=== PATIENT | female | born 1940 ===

== ENCOUNTER 2016-08-17 14:52 | Emergency (ER) | payer MEDICARE ==
[2016-08-17 15:08] VITALS: TEMP 98.4
--- NOTE | 2016-08-17 16:34 | ED PDOC ---
HPI: General Adult Time Seen by Provider: 08/17/16 15:10 Chief Complaint (Nursing): Cough, Cold, Congestion Chief Complaint (Provider): shortness of breath History Per: Patient History/Exam Limitations: no limitations Additional Complaint(s): 75yo female was diagnosed with bronchitis at [facility] [place] 4 days ago and sent home with PO levaquin. Since then, fever, shortness of breath, dizziness, has been getting worse. Family reports poor appetite. Patient states that she ran out of albuterol months ago. Per Dr. Bucio note Rx: cough, congestion, worsening fatigue for 3 days with SaO2 92%. PMD: Fortunato Past Medical History Reviewed: Historical Data, Nursing Documentation, Vital Signs Vital Signs: Last Vital Signs Temp 98.4 F 08/17/16 15:05 Pulse 91 H 08/17/16 18:19 Resp 18 08/17/16 18:19 BP 95/57 L 08/17/16 18:19 Pulse Ox 94 L 08/18/16 22:43 - Medical History PMH: Asthma, Hypothyroidism, Rheumatoid Arthritis Other PMH: seasonal allergies, "sinus problems" - Surgical History Surgical History: No Surg Hx - Family History Family History: States: Unknown Family Hx - Social History Current smoker - smoking cessation education provided: No Alcohol: None Drugs: Denies - Home Medications Home Medications: Ambulatory Orders Medication Instructions Recorded Albuterol 0.042% [Albuterol 0.042% 3 ml IH Q4H PRN #30 nelsy 08/17/16 Inhal Nelsy (1.25mg/3ml) UD] Albuterol 0.083% [Albuterol 0.083% 2.5 mg IH Q4H PRN #30 ml 08/17/16 Inhal Nelsy (2.5 mg/3 ml) UD] Benzonatate [Tessalon Perle] 100 mg PO TID PRN #10 capsule 08/17/16 - Allergies Allergies/Adverse Reactions: Allergies Allergy/AdvReac Type Severity Reaction Status Date / Time No Known Allergies Allergy Verified 08/17/16 15:04 Review of Systems ROS Statement: Except As Marked, All Systems Reviewed And Found Negative Constitutional: Positive for: Fever, Other (fatigue) ENT: Positive for: Nose Congestion Respiratory: Positive for: Cough, Shortness of Breath Physical Exam - Reviewed Nursing Documentation Reviewed: Yes Vital Signs Reviewed: Yes - Physical Exam Appears: Positive for: Well, Non-toxic, No Acute Distress Head Exam: Positive for: ATRAUMATIC, NORMAL INSPECTION, NORMOCEPHALIC Skin: Positive for: Warm, Dry Eye Exam: Positive for: EOMI, PERRL Cardiovascular/Chest: Positive for: Regular Rate, Rhythm Respiratory: Positive for: Rhonchi (diffuse). Negative for: Accessory Muscle Use, Crackles, Rales, Stridor, Wheezing, Respiratory Distress Gastrointestinal/Abdominal: Positive for: Soft. Negative for: Tenderness Extremity: Positive for: Normal ROM Neurologic/Psych: Positive for: Alert, Oriented - Laboratory Results Result Diagrams: 08/17/16 16:00 08/17/16 16:00 - ECG O2 Sat by Pulse Oximetry: 94 Medical Decision Making Medical Decision Makin Impression: bronchitis possible asthma exacerbation plan: -CXR -labs -albuterol -reassess 1810 XRay does not show large pnuemonia. (pt already on levaquin), O2 saturation has improved. Patient reports that she ran out of albuterol moths ago. Upon reevaluation, patient feels better with albuterol. Discussed diagnosis of asthma with patient. pt insturcted to continue leavquin at home as prescrivbed by other doctor. Patient will be given Rx for albuterol and tessalon perle. Patient will follow up with her PMD and is advised to return to the ED with symptoms worsen. Scribe Attestation: Documented by Sherlyn Perez, acting as a scribe for Mahamed Martines MD. Provider Scribe Attestation: All medical record entries made by the Scribe were at my direction and personally dictated by me. I have reviewed the chart and agree that the record accurately reflects my personal performance of the history, physical exam, medical decision making, and the department course for this patient. I have also personally directed, reviewed, and agree with the discharge instructions and disposition. Disposition - Clinical Impression Clinical Impression: Asthma - Patient ED Disposition Is Patient to be Admitted: No Counseled Patient/Family Regarding: Studies Performed, Diagnosis, Need For Followup - Disposition Disposition: Routine/Home Disposition Time: 18:00 Condition: GOOD Additional Instructions: follow up with your primary doctor in 1-2 days. return to the ED with any worsening or concerning symptoms. Prescriptions: Albuterol 0.042% [Albuterol 0.042% Inhal Nelsy (1.25mg/3ml) UD] 3 ml IH Q4H PRN # 30 nelsy PRN Reason: Cough Albuterol 0.083% [Albuterol 0.083% Inhal Nelsy (2.5 mg/3 ml) UD] 2.5 mg IH Q4H PRN #30 ml PRN Reason: Cough Benzonatate [Tessalon Perle] 100 mg PO TID PRN #10 capsule PRN Reason: Cough Instructions: Asthma (ED) Print Language: SAMOAN Additional Comments - Additional Comments Additional Comments: Scribe Attestation: Documented by Tashi Beasley acting as a scribe for Mahamed Martines MD. Provider Scribe Attestation: All medical record entries made by the Scribe were at my direction and personally dictated by me. I have reviewed the chart and agree that the record accurately reflects my personal performance of the history, physical exam, medical decision making, and the department course for this patient. I have also personally directed, reviewed, and agree with the discharge instructions and disposition.
[2016-08-17] MEDS ORDERED: Albuterol 0.083% Inhal Sol (2.5 mg/3 mL) UD INH ONE ×2 (16:37→18:32)
[2016-08-17] MEDS ORDERED: Albuterol 0.083% Inhal Sol (2.5 mg/3 mL) UD ONE (16:44)
[2016-08-17 17:17] LABS: BASO # 0.1 K/uL (0.0-0.2); BASO % 0.8 % (0.0-2.0); EOS % 0.7 % (0.0-4.0); HEMATOCRIT 43.9 % (34.0-47.0); LYMPH # 2.9 K/uL (1.0-4.3); LYMPH % 44.6 % (20.0-40.0); MEAN CELL VOLUME 86.1 fl (81.0-99.0); MEAN CORPUSCULAR HEMOGLOBIN 27.7 pg (27.0-31.0); MEAN CORPUSCULAR HGB CONC 32.1 g/dL (33.0-37.0); MEAN PLATELET VOLUME 8.3 fl (7.2-11.7); MONO # 0.8 K/uL (0.0-0.8); MONO % 12.8 % (0.0-10.0); NEUT # 2.7 K/uL (1.8-7.0); NEUT % 41.1 % (50.0-75.0); NRBC % 0.1 % (0.0-0.0); RED CELL DISTRIBUTION WIDTH 14.2 % (11.5-14.5); WHITE BLOOD COUNT 6.6 K/uL (4.8-10.8)
[2016-08-17 17:31] LABS: ALB/GLOB RATIO 0.9 (1.0-2.1); ALKALINE PHOSPHATASE 85 U/L (38-126); ALT/SGPT 37 U/L (9-52); AST/SGOT 35 U/L (14-36); BILIRUBIN,TOTAL 0.7 mg/dl (0.2-1.3); BLOOD UREA NITROGEN 16 mg/dl (7-17); CALCIUM 9.2 mg/dL (8.4-10.2); CARBON DIOXIDE 28 mmol/L (22-30); CHLORIDE 101 mmol/L (98-107); GFR AFRICAN-AMERICAN > 60; GLUCOSE,RANDOM 126 mg/dL (65-105); POTASSIUM 3.5 MMOL/L (3.6-5.0); SODIUM 146 mmol/l (132-148); TOTAL PROTEIN 8.2 G/DL (6.3-8.2)
[2016-08-17] MEDS ORDERED: Potassium Chloride 20 mEq ER Tab PO ONE (18:10)
[2016-08-17 18:23] VITALS: BP 95/57; PULSE 91; RESP 18
[2016-08-17 18:37] VITALS: O2SAT 94
--- NOTE | 2016-08-18 08:25 | RAD ---
HISTORY: cough COMPARISON: No prior. TECHNIQUE: Chest PA and lateral FINDINGS: LUNGS: Hyperinflation of the lungs. Possible small linear opacity at the left lower lung. PLEURA: No significant pleural effusion identified. No pneumothorax apparent. CARDIOVASCULAR: Normal. OSSEOUS STRUCTURES: No significant abnormalities. VISUALIZED UPPER ABDOMEN: Normal. OTHER FINDINGS: None. IMPRESSION: Hyperinflation of the lungs suggestive of COPD. Questionable small linear opacity at the left lower lung.
== END 2016-08-17 18:50 | disposition home or self-care (01) ==
LOC: H.ER 14:52
DX: J45.909 Unspecified asthma, uncomplicated (principal); E03.9 Hypothyroidism, unspecified

== ENCOUNTER 2017-05-25 07:35 | Inpatient (IN) | payer MEDICARE ==
[2017-05-25] MEDS ORDERED: Sodium Chloride 0.9% 1,000 ML IV STA (07:48)
--- NOTE | 2017-05-25 07:58 | ED PDOC ---
HPI: Abdomen Time Seen by Provider: 05/25/17 07:48 Chief Complaint (Nursing): Abdominal Pain Chief Complaint (Provider): abdominal pain History Per: Patient, Family, [employer]house [employer] Super[employer] History/Exam Limitations: no limitations Onset/Duration Of Symptoms: Days (1) Current Symptoms Are (Timing): Still Present Location Of Pain/Discomfort: LLQ Quality Of Discomfort: Sharp Associated Symptoms: Loss Of Appetite, Back Pain. denies: Nausea, Vomiting, Diarrhea, Chest Pain, Constipation, Urinary Symptoms Exacerbating Factors: None Alleviating Factors: None Additional Complaint(s): 76yo female arrives via EMS c/o LLQ pain onset last night, similar to prior history of diverticulitis. Patient is a poor historian, unsure when last episode of diverticulitis took place. She also c/o generalized weakness. Daughter in law present, visiting from [place], unfamiliar with specifics of history or care, does know she had R knee surgery several weeks ago at [facility] [place]. Abnormal Vaginal Bleeding: No Past Medical History Reviewed: Historical Data, Nursing Documentation, Vital Signs Vital Signs: Last Vital Signs Temp 98.7 F 05/29/17 12:00 Pulse 117 H 05/29/17 12:00 Resp 18 05/29/17 12:00 BP 112/61 05/29/17 12:00 Pulse Ox 95 05/29/17 12:00 - Medical History PMH: Asthma, Hypothyroidism, Rheumatoid Arthritis - Surgical History Other surgeries: R knee - Family History Family History: States: Unknown Family Hx - Living Arrangements Living Arrangements: With Family - Social History Current smoker - smoking cessation education provided: No - Home Medications Home Medications: Ambulatory Orders Medication Instructions Recorded Albuterol HFA [Ventolin HFA 90 2 puff IH Q4H PRN 05/25/17 mcg/actuation (8 g)] Etanercept [Enbrel] 50 mg SC Q14D 05/25/17 Fluticasone/Salmeterol 100/50 1 puff IH Q12H 05/25/17 [Advair Diskus 100/50] Levocetirizine Dihydrochloride 5 mg PO DAILY 05/25/17 [Xyzal] Montelukast [Singulair] 10 mg PO DAILY 05/25/17 Aspirin 81 mg PO DAILY #30 tab.chew 05/26/17 Atorvastatin [Lipitor] 20 mg PO DAILY #30 tab 05/26/17 Levothyroxine [Synthroid] 100 mcg PO DAILY #30 tab 05/26/17 - Allergies Allergies/Adverse Reactions: Allergies Allergy/AdvReac Type Severity Reaction Status Date / Time No Known Allergies Allergy Verified 08/17/16 15:04 Review of Systems ROS Statement: Except As Marked, All Systems Reviewed And Found Negative Constitutional: Negative for: Fever, Chills Cardiovascular: Negative for: Chest Pain, Palpitations Respiratory: Negative for: Cough, Shortness of Breath Gastrointestinal: Positive for: Abdominal Pain. Negative for: Nausea, Vomiting , Diarrhea, Hematochezia, Hematemesis Genitourinary Female: Negative for: Dysuria, Frequency Musculoskeletal: Negative for: Neck Pain Skin: Negative for: Rash, Lesions, Jaundice Neurological: Negative for: Weakness, Numbness Physical Exam - Reviewed Nursing Documentation Reviewed: Yes Vital Signs Reviewed: Yes - Physical Exam Appears: Positive for: Well, Non-toxic, No Acute Distress Head Exam: Positive for: ATRAUMATIC, NORMAL INSPECTION, NORMOCEPHALIC Skin: Positive for: Warm, Pallor Eye Exam: Positive for: EOMI, Normal appearance, PERRL ENT: Positive for: Normal ENT Inspection Neck: Positive for: Normal, Painless ROM Cardiovascular/Chest: Positive for: Regular Rate, Rhythm Respiratory: Positive for: CNT, Normal Breath Sounds Gastrointestinal/Abdominal: Positive for: Bowel Sounds, Soft, Tenderness (LLQ). Negative for: Distended, Guarding, Rebound Back: Positive for: Normal Inspection Extremity: Positive for: Normal ROM, Pedal Edema (trace R>L, R knee surg scars healing) Neurologic/Psych: Positive for: Alert, Oriented (poor historian). Negative for : Motor/Sensory Deficits, Aphasia, Facial Droop - Laboratory Results Result Diagrams: 05/29/17 04:30 05/29/17 04:30 Medical Decision Making Medical Decision Making: workup for abd pain initiated labs, CT and/pelv, IVF and analgesics ordered CT report reviewed PMD covered by hospitalist, admit for GI consult possible intestinal angina Disposition - Clinical Impression Clinical Impression: Intestinal angina, Abdominal pain - Patient ED Disposition Is Patient to be Admitted: Yes Counseled Patient/Family Regarding: Studies Performed, Diagnosis - Disposition Disposition Time: 11:30 Condition: FAIR - Pt Status Changed To: Hospital Disposition Of: Inpatient - Admit Certification Admit to Inpatient:: After my assessment, the patient will require hospitalization for at least two midnights. This is because of the severity of symptoms shown, intensity of services needed, and/or the medical risk in this patient being treated as an outpatient. - POA Present On Arrival: None, Deep Vein Thrombosis / PE (Lower extremity swelling present on admission)
[2017-05-25 08:16] LABS: BASO # 0.1 K/uL (0.0-0.2); BASO % 0.5 % (0.0-2.0); EOS % 0.4 % (0.0-4.0); HEMOGLOBIN 13.4 g/dL (12.0-16.0); LYMPH % 15.1 % (20.0-40.0); MEAN CORPUSCULAR HEMOGLOBIN 27.9 pg (27.0-31.0); MEAN CORPUSCULAR HGB CONC 32.1 g/dL (33.0-37.0); MEAN PLATELET VOLUME 7.3 fl (7.2-11.7); MONO % 7.6 % (0.0-10.0); NEUT # 9.9 K/uL (1.8-7.0); NEUT % 76.4 % (50.0-75.0); NRBC % 0.1 % (0.0-0.0); RBC 4.79 Mil/uL (3.80-5.20); RED CELL DISTRIBUTION WIDTH 16.4 % (11.5-14.5); WHITE BLOOD COUNT 12.9 K/uL (4.8-10.8)
[2017-05-25 08:31] LABS: ALBUMIN 4.3 g/dL (3.5-5.0); CALCIUM 9.9 mg/dL (8.4-10.2); GFR AFRICAN-AMERICAN > 60; GFR NON-AFRICAN AMERICAN > 60; LIPASE 47 U/L (23-300)
[2017-05-25 08:46] LABS: PARTIAL THROMBOPLASTIN TIME 28.5 Seconds (25.6-37.1); PROTHROMBIN TIME 11.6 Seconds (9.8-13.1)
[2017-05-25 08:48] LABS: ALT/SGPT 34 U/L (9-52); AST/SGOT 37 U/L (14-36); BLOOD UREA NITROGEN 10 mg/dl (7-17)
[2017-05-25] MEDS ORDERED: Sodium Chloride 0.9% 50 ML IV ONE (10:19)
[2017-05-25] MEDS ORDERED: Iohexol 300 100 ML IJ ONE (10:19)
--- NOTE | 2017-05-25 12:20 | CT ---
PROCEDURE: CT Abdomen and Pelvis with contrast HISTORY: LLQ pain, hx diverticulitis COMPARISON: None. TECHNIQUE: Contrast dose: 95 mL Omnipaque 300 Radiation dose: Total exam DLP = 807.49 mGy-cm. This CT exam was performed using one or more of the following dose reduction techniques: Automated exposure control, adjustment of the mA and/or kV according to patient size, and/or use of iterative reconstruction technique. FINDINGS: LOWER THORAX: Unremarkable. LIVER: Normal size, contour and attenuation. Mild central intrahepatic biliary dilatation consistent with prior cholecystectomy. GALLBLADDER AND BILE DUCTS: Status post cholecystectomy. Mild dilatation of common bile duct to 9 mm diameter, consistent with age related ectasia and prior cholecystectomy. PANCREAS: Unremarkable. No gross lesion or ductal dilatation. SPLEEN: Unremarkable. ADRENALS: Unremarkable. No mass. KIDNEYS AND URETERS: 10 mm nonspecific rounded low-attenuation lesion upper pole left kidney. No other mass. No calculus or hydronephrosis. VASCULATURE: No evidence of abdominal aortic aneurysm. 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 There is bilobed occlusion of the proximal S and head at its origin with reconstitution distally supplied primarily by the pancreaticoduodenal arcade arising from the gastroduodenal artery. The SMA is reconstituted and there is flow demonstrated to the branches supplying the small intestine. BOWEL: Extensive diverticulosis of the sigmoid colon. Scattered diverticula seen throughout the remainder of the colon. No evidence of diverticulitis. No bowel obstruction. No abnormal bowel loops. APPENDIX: Normal appendix. PERITONEUM: Unremarkable. No free fluid. No free air. LYMPH NODES: Unremarkable. No enlarged lymph nodes. BLADDER: Unremarkable. REPRODUCTIVE: Status post hysterectomy. BONES: No acute fracture. OTHER FINDINGS: None. 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 Status post cholecystectomy. Sigmoid diverticulosis without evidence of diverticulitis. No abnormal small bowel loops identified.
[2017-05-25] MEDS ORDERED: Pneumococcal 23-Valent Vaccine IM ONE (13:30)
--- NOTE | 2017-05-25 13:37 | CP.PCM.HP ---
History of Present Illness - History of Present Illness History of Present Illness: 76 y/o female with PMH Hypothyroidism, Asthma, second hand smoker brought to ER by family for evaluation for severe abdominal pain . History obtained from patient and family. As per patient, she developed severe sharp 10/10 mid abdominal pain radiating to left flank this AM. She denies any constipation or diarrhea but gives history of poor PO intake with no appetite for some time , history that is corroborated by family members .As per family patient has been feeling weak and tired. 1 month ago she had left knee arthroscopy and repair. 2 weeks ago her son found her on the bathroom floor , after a fall due to weakness ,with a trail of diarrhea from her room to the bathroom . Patient was admitted at [facility] and was diagnosed with dehydration and after was discharged home. Family states that patient has very poor PO intake, no appetite , has no bowel or urinary control and wears diapers all the time, has bilateral knee arthritis and difficulty with walking due to weakness. 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 Status post cholecystectomy. Sigmoid diverticulosis without evidence of diverticulitis. No abnormal small bowel loops identified. Patient to be placed under observation for abdominal angina and GI to be consulted. 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 Fortunato HAY ; complains of poor appetite , abdominal pain and generalized weakness Present on Admission - Present on Admission Any Indicators Present on Admission: No Review of Systems - Review of Systems All systems: reviewed and no additional remarkable complaints except Past Patient History - Infectious Disease Hx of Infectious Diseases: None - Tetanus Immunizations Tetanus Immunization: Unknown - Past Medical History & Family History Past Medical History?: Yes Past Family History: Reviewed and not pertinent - Past Social History Smoking Status: Never Smoked Chewing Tobacco Use: No Cigar Use: No Alcohol: None Drugs: Denies Home Situation {Lives}: Alone Domestic Violence: Negative - PULMONARY Hx Asthma: Yes - ENDOCRINE/METABOLIC Hx Hypothyroidism: Yes - MUSCULOSKELETAL/RHEUMATOLOGICAL Hx Rheumatoid Arthritis: Yes - GASTROINTESTINAL Hx Diverticulitis: Yes - PSYCHIATRIC Hx Substance Use: No - SURGICAL HISTORY Hx Hysterectomy: Yes Hx Orthopedic Surgery: Yes (Right knee) Other/Comment: Fractured right ankle. Sinus - ANESTHESIA Hx Anesthesia: Yes Hx Anesthesia Reactions: No Hx Malignant Hyperthermia: No Meds Allergies/Adverse Reactions: Allergies Allergy/AdvReac Type Severity Reaction Status Date / Time No Known Allergies Allergy Verified 08/17/16 15:04 Physical Exam - Constitutional Appears: Non-toxic, No Acute Distress - Head Exam Head Exam: ATRAUMATIC, NORMAL INSPECTION, NORMOCEPHALIC - Eye Exam Eye Exam: EOMI, Normal appearance, PERRL Pupil Exam: NORMAL ACCOMODATION - ENT Exam ENT Exam: Mucous Membranes Moist, Normal Exam - Neck Exam Neck exam: Positive for: Full Rom, Normal Inspection - Respiratory Exam Respiratory Exam: Clear to Auscultation Bilateral, NORMAL BREATHING PATTERN. absent: Rhonchi, Wheezes, Respiratory Distress - Cardiovascular Exam Cardiovascular Exam: REGULAR RHYTHM, RRR, +S1, +S2. absent: JVD - GI/Abdominal Exam GI & Abdominal Exam: Normal Bowel Sounds, Tenderness (with palpation ). absent : Distended, Guarding, Rebound - Rectal Exam Rectal Exam: Deferred - Extremities Exam Extremities exam: Positive for: normal capillary refill, normal inspection, pedal pulses present. Negative for: calf tenderness, pedal edema Additional comments: right knee arthritic changes - Back Exam Back exam: NORMAL INSPECTION - Neurological Exam Neurological exam: Alert, CN II-XII Intact, Oriented x3 - Psychiatric Exam Psychiatric exam: Normal Affect - Skin Skin Exam: Dry, Warm Results - Vital Signs Recent Vital Signs: Last Vital Signs Temp 98.9 F 05/25/17 12:44 Pulse 76 05/25/17 12:44 Resp 20 05/25/17 12:44 BP 123/74 05/25/17 12:44 Pulse Ox 98 05/25/17 12:44 - Labs Result Diagrams: 05/25/17 08:07 05/25/17 08:07 Labs: Laboratory Results - last 24 hr 05/25/17 05/25/17 05/25/17 08:07 08:07 08:07 WBC 12.9 H D RBC 4.79 Hgb 13.4 Hct 41.7 MCV 87.0 MCH 27.9 MCHC 32.1 L RDW 16.4 H Plt Count 356 MPV 7.3 Neut % (Auto) 76.4 H Lymph % (Auto) 15.1 L Bucks % (Auto) 7.6 Eos % (Auto) 0.4 Baso % (Auto) 0.5 Neut # 9.9 H Lymph # 2.0 Bucks # 1.0 H Eos # 0.0 Baso # 0.1 PT 11.6 INR 1.0 APTT 28.5 Sodium 139 Potassium 4.3 Chloride 104 Carbon Dioxide 20 L Anion Gap 19 BUN 10 Creatinine 0.7 Est GFR ( Amer) > 60 Est GFR (Non-Af Amer) > 60 Random Glucose 177 H Calcium 9.9 Total Bilirubin 1.5 H AST 37 H D ALT 34 Alkaline Phosphatase 80 Total Protein 8.7 H Albumin 4.3 Globulin 4.3 H Albumin/Globulin Ratio 1.0 Lipase 47 - Imaging and Cardiology CT scan - abdomen Additional comment: 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 Status post cholecystectomy. Sigmoid diverticulosis without evidence of diverticulitis. No abnormal small bowel loops identified. Assessment & Plan - Assessment and Plan (Free Text) Assessment: 76 y/o female with PMH Hypothyroidism, Asthma, second hand smoker brought to ER by family for evaluation for severe abdominal pain . History obtained from patient and family. As per patient, she developed severe sharp 10/10 mid abdominal pain radiating to left flank this AM. She denies any constipation or diarrhea but gives history of poor PO intake with no appetite for some time , history that is corroborated by family members .As per family patient has been feeling weak and tired. 1 month ago she had left knee arthroscopy and repair. 2 weeks ago her son found her on the bathroom floor , after a fall due to weakness ,with a trail of diarrhea from her room to the bathroom . Patient was admitted at [facility] and was diagnosed with dehydration and after was discharged home. Family states that patient has very poor PO intake, no appetite , has no bowel or urinary control and wears diapers all the time, has bilateral knee arthritis and difficulty with walking due to weakness. 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 Status post cholecystectomy. Sigmoid diverticulosis without evidence of diverticulitis. No abnormal small bowel loops identified. Patient to be placed under observation for abdominal angina and GI to be consulted. 1. Abdominal pain most likely secondary to abdominal angina CT abdomen showed no diverticulitis, but extensive artherosclerotic disease will place patient under observation Start IVF GI consult with Dr. Chamberlain pain management Dylan 1.5 . patient has history of cholecystectomy and CT shows no stones lipase - normal Check UA, lipid profile 2. Hypothyroidism Check TSH resume synthroid . will increase dose to 100 mcg 3.Asthma Controlled resume Duonebs , O2 vi anC 4. Leukocytosis Most likely reactive and hemo concentration 5. Poor appetite denies depression nutrition eval 6. Arthritis On enbrel ? PT eval 7. DVT prophylaxis SCD Lovenox
[2017-05-25] MEDS: Sodium Chloride 0.9% 1,000 ML IV SCH ×2 (14:03→23:50)
[2017-05-25] MEDS ORDERED: Albuterol HFA 90 mcg/actuation (8 g) IH PRN (19:23)
[2017-05-25] MEDS: Fluticasone-Salmeterol 100-50mcg Diskus IH SCH ×2 (22:17→22:19)
[2017-05-26] MEDS: Levothyroxine 100 MCG TAB PO SCH ×3 (06:09→08:51)
[2017-05-26 06:25] LABS: BASO % 0.4 % (0.0-2.0); EOS # 0.1 K/uL (0.0-0.7); EOS % 0.5 % (0.0-4.0); HEMOGLOBIN 12.4 g/dL (12.0-16.0); LYMPH % 18.8 % (20.0-40.0); MEAN CELL VOLUME 87.6 fl (81.0-99.0); MEAN PLATELET VOLUME 7.4 fl (7.2-11.7); MONO # 1.1 K/uL (0.0-0.8); MONO % 10.3 % (0.0-10.0); NEUT # 7.4 K/uL (1.8-7.0); RBC 4.43 Mil/uL (3.80-5.20); RED CELL DISTRIBUTION WIDTH 16.3 % (11.5-14.5); WHITE BLOOD COUNT 10.6 K/uL (4.8-10.8)
[2017-05-26 06:40] LABS: ALB/GLOB RATIO 0.9 (1.0-2.1); ALBUMIN 3.8 g/dL (3.5-5.0); ALT/SGPT 41 U/L (9-52); AST/SGOT 25 U/L (14-36); BLOOD UREA NITROGEN 15 mg/dl (7-17); CALCIUM 9.7 mg/dL (8.4-10.2); GFR AFRICAN-AMERICAN > 60; GFR NON-AFRICAN AMERICAN > 60; HDL CHOLESTEROL 47 MG/DL (30-70); LDL CHOLESTEROL 109 mg/dL (0-129)
[2017-05-26 07:16] LABS: INR 1.1 (0.9-1.2); PROTHROMBIN TIME 12.5 Seconds (9.8-13.1)
[2017-05-26] MEDS: Fluticasone-Salmeterol 100-50mcg Diskus IH SCH ×2 (08:40→21:36)
[2017-05-26] MEDS: Pantoprazole 40 mg EC Tab PO SCH (08:41)
[2017-05-26] MEDS ORDERED: Levothyroxine 75 MCG TAB PO SCH (09:00)
--- NOTE | 2017-05-26 17:04 | CP.PCM.PN ---
Subjective - Date & Time of Evaluation Date of Evaluation: 05/26/17 Time of Evaluation: 14:00 - Subjective Subjective: Patient was seen and examined bedside. Complains of swollen left thigh more than right that she noticed this AM. Denies any pain or discomfort to LLE but states that her LLe feels heavy.As per family they noticed her feet turn to purple color when they assisted her to the bathroom. Denies any abdominal pain today, nausea, vomiting , diarrhea Hemodynamically stable, afebrile Objective - Vital Signs/Intake and Output Vital Signs (last 24 hours): Temp Pulse Resp BP Pulse Ox 98.9 F 100 H 20 108/71 97 05/26/17 15:49 05/26/17 15:49 05/26/17 15:49 05/26/17 15:49 05/26/17 15:49 - Medications Medications: Current Medications Acetaminophen (Tylenol 325mg Tab) 650 mg PO Q6 PRN PRN Reason: Pain, Mild (1-3) Acetaminophen (Tylenol 325mg Tab) 650 mg PO Q6 PRN PRN Reason: Fever >100.4 F Albuterol (Ventolin Hfa 90 Mcg/Actuation (8 G)) 2 puff IH Q4H PRN PRN Reason: Shortness of Breath Aspirin (Aspirin Chewable) [address] [facility] Last Admin: 05/26/17 10:57 Dose: 81 mg Atorvastatin Calcium (Lipitor) [address] [facility] Last Admin: 05/26/17 08:41 Dose: 20 mg Cilostazol (Pletal) [address] [facility] Sodium Chloride (Sodium Chloride 0.9%) 1,000 mls @ 100 mls/hr IV .Q10H [facility] Last Admin: 05/25/17 23:50 Dose: Not Given Ketorolac Tromethamine (Toradol) 30 mg IVP Q6 PRN PRN Reason: Pain, severe (8-10) Last Admin: 05/25/17 22:17 Dose: 30 mg Levothyroxine Sodium (Synthroid) 100 mcg PO DAILY@0630 [facility] Last Admin: 05/26/17 08:51 Dose: 100 mcg Montelukast Sodium (Singulair) [address] [facility] Last Admin: 05/26/17 08:42 Dose: 10 mg Ondansetron HCl (Zofran Inj) 4 mg IVP Q6 PRN PRN Reason: Nausea/Vomiting Pantoprazole Sodium (Protonix Ec Tab) [address] [facility] Last Admin: 05/26/17 08:41 Dose: 40 mg Fluticasone/Salmeterol (Advair Diskus 100/50) [address] [facility] Last Admin: 05/26/17 08:40 Dose: 1 puff - Labs Labs: 05/26/17 05:45 05/26/17 05:45 PT 12.5 Seconds (9.8-13.1) 05/26/17 05:45 INR 1.1 (0.9-1.2) 05/26/17 05:45 APTT 28.5 Seconds (25.6-37.1) 05/25/17 08:07 - Constitutional Appears: Non-toxic, No Acute Distress - Head Exam Head Exam: ATRAUMATIC, NORMAL INSPECTION, NORMOCEPHALIC - Eye Exam Eye Exam: EOMI, Normal appearance, PERRL Pupil Exam: NORMAL ACCOMODATION - ENT Exam ENT Exam: Mucous Membranes Moist, Normal Exam - Neck Exam Neck Exam: Full ROM, Normal Inspection - Respiratory Exam Respiratory Exam: Clear to Ausculation Bilateral, NORMAL BREATHING PATTERN. absent: Wheezes, Respiratory Distress Additional comments: coughing spells - Cardiovascular Exam Cardiovascular Exam: REGULAR RHYTHM, RRR, +S1, +S2. absent: JVD - GI/Abdominal Exam GI & Abdominal Exam: Soft, Normal Bowel Sounds. absent: Distended, Guarding, Tenderness, Rebound - Rectal Exam Rectal Exam: Deferred - Extremities Exam Extremities Exam: absent: Pedal Edema Additional comments: pulses present LE warm to touch no calf tenderness - Neurological Exam Neurological Exam: Alert, Awake, CN II-XII Intact, Oriented x3 - Psychiatric Exam Psychiatric exam: Normal Affect - Skin Skin Exam: Dry, Warm Assessment and Plan - Assessment and Plan (Free Text) Assessment: 76 y/o female with PMH Hypothyroidism, Asthma, second hand smoker brought to ER by family for evaluation for severe abdominal pain . History obtained from patient and family. As per patient, she developed severe sharp 10/10 mid abdominal pain radiating to left flank this AM. She denies any constipation or diarrhea but gives history of poor PO intake with no appetite for some time , history that is corroborated by family members .As per family patient has been feeling weak and tired. 1 month ago she had left knee arthroscopy and repair. 2 weeks ago her son found her on the bathroom floor , after a fall due to weakness ,with a trail of diarrhea from her room to the bathroom . Patient was admitted at [facility] and was diagnosed with dehydration and after was discharged home. Family states that patient has very poor PO intake, no appetite , has no bowel or urinary control and wears diapers all the time, has bilateral knee arthritis and difficulty with walking due to weakness. 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 Status post cholecystectomy. Sigmoid diverticulosis without evidence of diverticulitis. No abnormal small bowel loops identified. Patient was placed under observation for abdominal pain and GI consulted. Today patient complaining of swollen Left thigh more than right , denies pain . LE skin color changes to purple with ambulation 1. Abdominal pain most likely secondary to abdominal angina CT abdomen showed no diverticulitis, but extensive artherosclerotic disease GI consult with Dr. Chamberlain called and case discussed Started ASA, Atorvastatin and Pletal continue pain management PRN Dylan 1.5 . patient has history of cholecystectomy and CT shows no stones lipase - normal UA still not sent 2. Swollen Left Thigh will order Doppler US to r/o DVT Arterial doppler to r/o PAD 3. Hypothyroidism uncontrolled TSH 4.9 increased dose to 100 mcg 4.Asthma Controlled resume Duonebs , O2 via [place] 5. Leukocytosis Most likely reactive and hemo concentration 6. Poor appetite denies depression nutrition eval 7. Arthritis On enbrel for many yeras PT eval 8. DVT prophylaxis SCD Lovenox
[2017-05-26] MEDS: Cilostazol 50 mg Tab UD PO SCH (17:25)
--- NOTE | 2017-05-26 18:29 | CARD ---
APPROVED REPORT EKG Measurement Heart [id number] <Conclusion> Sinus tachycardia Left anterior fascicular block Abnormal ECG
[2017-05-26] MEDS: Sodium Chloride 0.9% 1,000 ML IV SCH (19:30)
[2017-05-27] MEDS: Sodium Chloride 0.9% 1,000 ML IV SCH (05:30)
[2017-05-27] MEDS: Levothyroxine 100 MCG TAB PO SCH (06:15)
[2017-05-27] MEDS: Pantoprazole 40 mg EC Tab PO SCH (09:00)
[2017-05-27] MEDS: Cilostazol 50 mg Tab UD PO SCH (09:00)
[2017-05-27] MEDS: Fluticasone-Salmeterol 100-50mcg Diskus IH SCH ×2 (09:02→21:15)
[2017-05-27 11:23] LABS: SQUAMOUS EPITHIAL 1 /hpf (0-5); URINE AMORPHOUS SEDIMENT RARE /ul (<OCC); URINE BILIRUBIN NEGATIVE (NEGATIVE); URINE BLOOD NEGATIVE (NEGATIVE); URINE CLARITY TURBID (Clear); URINE COLOR AMBER (YELLOW); URINE GLUCOSE (UA) NEG (Normal); URINE LEUKOCYTE ESTERASE LARGE Leu/uL (Negative); URINE NITRATE NEGATIVE (NEGATIVE); URINE PROTEIN 30 mg/dL (NEGATIVE); URINE UROBILINOGEN 0.2-1.0 mg/dL (0.2-1.0)
[2017-05-27] MEDS ORDERED: Enoxaparin 80 mg Syringe SC STA (13:22)
--- NOTE | 2017-05-27 13:42 | US ---
PROCEDURE: Bilateral lower extremity venous duplex Doppler. HISTORY: swollen large LLE , r/o DVT COMPARISON: None available. TECHNIQUE: Bilateral common femoral, superficial femoral, popliteal and posterior tibial veins were evaluated. Flow was assessed with color Doppler, compressibility, assessment of phasic flow and augmentation response. FINDINGS: COMMON FEMORAL VEIN: Right CFV: Unremarkable. Left CFV: DVT present within the left common, superficial, popliteal and posterior tibial veins. SUPERFICIAL FEMORAL VEIN: Right SFV: Unremarkable. Left SFV: Unremarkable. POPLITEAL VEIN: Right Popliteal: Unremarkable. Left Popliteal: Unremarkable. POSTERIOR TIBIAL VEIN: Right PTV: Unremarkable. Left PTV: Unremarkable. OTHER FINDINGS: None. IMPRESSION: DVT left common femoral superficial femoral popliteal and posterior tibial veins. Findings discussed with 6 S Nurse Carasig at approximately 1:38 p.m. with written down and read back verification.
--- NOTE | 2017-05-27 13:59 | CP.PCM.PN ---
Subjective - Date & Time of Evaluation Date of Evaluation: 05/27/17 Time of Evaluation: 13:59 - Subjective Subjective: pt continues to complain of leg swelling and back pain DOPPLERS +DVT will start LOVENOX 1 mg / kg q12h HD stable NAD NO DYSPNEA, SATURATING OK Objective - Vital Signs/Intake and Output Vital Signs (last 24 hours): Temp Pulse Resp BP Pulse Ox 98.1 F 103 H 20 102/64 96 05/27/17 09:00 05/27/17 08:16 05/27/17 08:16 05/27/17 08:16 05/27/17 08:16 - Medications Medications: Current Medications Acetaminophen (Tylenol 325mg Tab) 650 mg PO Q6 PRN PRN Reason: Pain, Mild (1-3) Acetaminophen (Tylenol 325mg Tab) 650 mg PO Q6 PRN PRN Reason: Fever >100.4 F Albuterol (Ventolin Hfa 90 Mcg/Actuation (8 G)) 2 puff IH Q4H PRN PRN Reason: Shortness of Breath Aspirin (Aspirin Chewable) 81 mg PO DAILY [facility] Last Admin: 05/27/17 09:01 Dose: 81 mg Atorvastatin Calcium (Lipitor) 20 mg PO DAILY [facility] Last Admin: 05/27/17 09:00 Dose: 20 mg Cilostazol (Pletal) 50 mg PO DAILY [facility] Last Admin: 05/27/17 09:00 Dose: 50 mg Enoxaparin Sodium (Lovenox) 75 mg SC Q12 [facility] PRN Reason: Protocol Sodium Chloride (Sodium Chloride 0.9%) 1,000 mls @ 100 mls/hr IV .Q10H [facility] Last Admin: 05/27/17 05:30 Dose: Not Given Ketorolac Tromethamine (Toradol) 30 mg IVP Q6 PRN PRN Reason: Pain, severe (8-10) Last Admin: 05/27/17 09:10 Dose: 30 mg Levothyroxine Sodium (Synthroid) 100 mcg PO DAILY@0630 [facility] Last Admin: 05/27/17 06:15 Dose: 100 mcg Montelukast Sodium (Singulair) 10 mg PO DAILY [facility] Last Admin: 05/27/17 09:00 Dose: 10 mg Nitrofurantoin Macrocrystals (Macrobid) 100 mg PO Q12 [facility] Stop: 05/30/17 12:31 Ondansetron HCl (Zofran Inj) 4 mg IVP Q6 PRN PRN Reason: Nausea/Vomiting Pantoprazole Sodium (Protonix Ec Tab) 40 mg PO DAILY [facility] Last Admin: 05/27/17 09:00 Dose: 40 mg Fluticasone/Salmeterol (Advair Diskus 100/50) 1 puff IH Q12 [facility] Last Admin: 05/27/17 09:02 Dose: 1 puff - Labs Labs: 05/26/17 05:45 05/26/17 05:45 PT 12.5 Seconds (9.8-13.1) 05/26/17 05:45 INR 1.1 (0.9-1.2) 05/26/17 05:45 APTT 28.5 Seconds (25.6-37.1) 05/25/17 08:07 - Constitutional Appears: Non-toxic, No Acute Distress - Head Exam Head Exam: ATRAUMATIC, NORMOCEPHALIC - Eye Exam Eye Exam: EOMI, Normal appearance Pupil Exam: NORMAL ACCOMODATION - ENT Exam ENT Exam: Mucous Membranes Moist, Normal Exam - Respiratory Exam Respiratory Exam: Clear to Ausculation Bilateral, NORMAL BREATHING PATTERN - Cardiovascular Exam Cardiovascular Exam: RRR, +S1, +S2 - GI/Abdominal Exam GI & Abdominal Exam: Soft, Normal Bowel Sounds. absent: Tenderness, Mass, Organomegaly - Extremities Exam Extremities Exam: Full ROM, Normal Capillary Refill, Pedal Edema - Back Exam Back Exam: absent: CVA tenderness (L), CVA tenderness (R) - Neurological Exam Neurological Exam: Alert, Awake - Psychiatric Exam Psychiatric exam: Normal Affect, Normal Mood - Skin Skin Exam: Dry, Warm Assessment and Plan - Assessment and Plan (Free Text) Plan: 76 y/o female with PMH Hypothyroidism, Asthma, second hand smoker brought to ER by family for evaluation for severe abdominal pain . History obtained from patient and family. As per patient, she developed severe sharp 10/10 mid abdominal pain radiating to left flank this AM. She denies any constipation or diarrhea but gives history of poor PO intake with no appetite for some time , history that is corroborated by family members .As per family patient has been feeling weak and tired. 1 month ago she had left knee arthroscopy and repair. 2 weeks ago her son found her on the bathroom floor , after a fall due to weakness ,with a trail of diarrhea from her room to the bathroom . Patient was admitted at [facility] and was diagnosed with dehydration and after was discharged home. Family states that patient has very poor PO intake, no appetite , has no bowel or urinary control and wears diapers all the time, has bilateral knee arthritis and difficulty with walking due to weakness. 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 Status post cholecystectomy. Sigmoid diverticulosis without evidence of diverticulitis. No abnormal small bowel loops identified. Patient was placed under observation for abdominal pain and GI consulted. Today patient complaining of swollen Left thigh more than right , denies pain . LE skin color changes to purple with ambulation 1. Abdominal pain most likely secondary to abdominal angina CT abdomen showed no diverticulitis, but extensive artherosclerotic disease GI consult with Dr. Chamberlain called and case discussed Started ASA, Atorvastatin and Pletal continue pain management PRN Dylan 1.5 . patient has history of cholecystectomy and CT shows no stones lipase - normal UA still not sent 2. DVT Swollen Left Thigh STAT lovenox 1 mg/kg given will initiate Xarelto tonight 2100 - to be started when next dose of lovenox due. 3. Hypothyroidism uncontrolled TSH 4.9 increased dose to 100 mcg 4.Asthma Controlled resume Duonebs , O2 via [place] 5. Leukocytosis Most likely reactive and hemo concentration 6. Poor appetite denies depression nutrition eval 7. Arthritis On enbrel for many yeras PT eval 8. DVT prophylaxis SCD Lovenox
[2017-05-27] MEDS ORDERED: Enoxaparin 80 mg Syringe SC SCH (21:00)
--- NOTE | 2017-05-28 01:11 | CP.PCM.CON ---
History of Present Illness - History of Present Illness History of Present Illness: 76 yo female with h/o hypothyroidism and rheumatoid arthritis admitted for abdominal pain and weight loss. She has not been eating well, is incontinent of urine and stool and has difficulty walkingShe had been recently [place] sent home after diagnosed with dehydration. Review of Systems - Constitutional Constitutional: absent: Chills - EENT Eyes: absent: Blurred Vision Ears: absent: Decreased Hearing Nose/Mouth/Throat: absent: Epistaxis - Cardiovascular Cardiovascular: absent: Chest Pain - Respiratory Respiratory: absent: Dyspnea - Gastrointestinal Gastrointestinal: As Per HPI Past Patient History - Infectious Disease Hx of Infectious Diseases: None - Tetanus Immunizations Tetanus Immunization: Unknown - Past Medical History & Family History Past Medical History?: Yes Past Family History: Reviewed and not pertinent - Past Social History Smoking Status: Never Smoked Chewing Tobacco Use: No Cigar Use: No Alcohol: None Drugs: Denies Home Situation {Lives}: Alone Domestic Violence: Negative - PULMONARY Hx Asthma: Yes - ENDOCRINE/METABOLIC Hx Hypothyroidism: Yes - MUSCULOSKELETAL/RHEUMATOLOGICAL Hx Rheumatoid Arthritis: Yes - GASTROINTESTINAL Hx Diverticulitis: Yes - PSYCHIATRIC Hx Substance Use: No - SURGICAL HISTORY Hx Hysterectomy: Yes Hx Orthopedic Surgery: Yes (Right knee) Other/Comment: Fractured right ankle. Sinus - ANESTHESIA Hx Anesthesia: Yes Hx Anesthesia Reactions: No Hx Malignant Hyperthermia: No Meds Home Medications: Home Medication List Medication Instructions Recorded Confirmed Type Aspirin 81 mg PO DAILY #30 tab.chew 05/26/17 Rx Atorvastatin [Lipitor] 20 mg PO DAILY #30 tab 05/26/17 Rx Levothyroxine [Synthroid] 100 mcg PO DAILY #30 tab 05/26/17 Rx Allergies/Adverse Reactions: Allergies Allergy/AdvReac Type Severity Reaction Status Date / Time No Known Allergies Allergy Verified 08/17/16 15:04 - Medications Medications: Current Medications Acetaminophen (Tylenol 325mg Tab) 650 mg PO Q6 PRN PRN Reason: Pain, Mild (1-3) Acetaminophen (Tylenol 325mg Tab) 650 mg PO Q6 PRN PRN Reason: Fever >100.4 F Albuterol (Ventolin Hfa 90 Mcg/Actuation (8 G)) 2 puff IH Q4H PRN PRN Reason: Shortness of Breath Aspirin (Aspirin Chewable) 81 mg PO DAILY [facility] Last Admin: 05/27/17 09:01 Dose: 81 mg Atorvastatin Calcium (Lipitor) 20 mg PO DAILY [facility] Last Admin: 05/27/17 09:00 Dose: 20 mg Cilostazol (Pletal) 50 mg PO DAILY [facility] Last Admin: 05/27/17 09:00 Dose: 50 mg Ketorolac Tromethamine (Toradol) 30 mg IVP Q6 PRN PRN Reason: Pain, severe (8-10) Last Admin: 05/27/17 09:10 Dose: 30 mg Levothyroxine Sodium (Synthroid) 100 mcg PO DAILY@0630 [facility] Last Admin: 05/27/17 06:15 Dose: 100 mcg Montelukast Sodium (Singulair) 10 mg PO DAILY [facility] Last Admin: 05/27/17 09:00 Dose: 10 mg Nitrofurantoin Macrocrystals (Macrobid) 100 mg PO Q12 [facility] Stop: 05/30/17 12:31 Last Admin: 05/27/17 20:20 Dose: Not Given Ondansetron HCl (Zofran Inj) 4 mg IVP Q6 PRN PRN Reason: Nausea/Vomiting Pantoprazole Sodium (Protonix Ec Tab) 40 mg PO DAILY [facility] Last Admin: 05/27/17 09:00 Dose: 40 mg Rivaroxaban (Xarelto) 15 mg PO BIDWM [facility] PRN Reason: Protocol Stop: 06/17/17 21:01 Last Admin: 05/27/17 21:15 Dose: 15 mg Fluticasone/Salmeterol (Advair Diskus 100/50) 1 puff IH Q12 [facility] Last Admin: 05/27/17 21:15 Dose: 1 puff Physical Exam - Head Exam Head Exam: ATRAUMATIC - Eye Exam Eye Exam: Normal appearance Pupil Exam: NORMAL ACCOMODATION - ENT Exam ENT Exam: Mucous Membranes Moist - Neck Exam Neck exam: Positive for: Normal Inspection - Respiratory Exam Respiratory Exam: Clear to Auscultation Bilateral - Cardiovascular Exam Cardiovascular Exam: REGULAR RHYTHM, +S1, +S2 - GI/Abdominal Exam GI & Abdominal Exam: Normal Bowel Sounds, Soft. absent: Tenderness Results - Vital Signs Recent Vital Signs: Last Vital Signs Temp 98.8 F 05/28/17 00:03 Pulse 105 H 05/28/17 00:03 Resp 18 05/28/17 00:03 BP 112/69 05/28/17 00:03 Pulse Ox 97 05/28/17 00:03 - Labs Result Diagrams: 05/26/17 05:45 05/26/17 05:45 Labs: Laboratory Results - last 24 hr 05/26/17 05/27/17 05/27/17 09:30 05:20 10:56 POC Glucose (mg/dL) 124 H 119 H Urine Color Sunita Urine Clarity Turbid Urine pH 5.0 Ur Specific [place]well 1.050 H Urine Protein 30 Urine Glucose (UA) Neg Urine Ketones Trace Urine Blood Negative Urine Nitrate Negative Urine Bilirubin Negative Urine Urobilinogen 0.2-1.0 Ur Leukocyte Esterase Large Urine RBC (Auto) 2 Urine Microscopic WBC 3 Ur Squamous Epith Cells 1 Amorphous Sediment Rare H 05/27/17 05/27/17 16:00 22:06 POC Glucose (mg/dL) 140 H 138 H Urine Color Urine Clarity Urine pH Ur Specific [place] Urine Protein Urine Glucose (UA) Urine Ketones Urine Blood Urine Nitrate Urine Bilirubin Urine Urobilinogen Ur Leukocyte Esterase Urine RBC (Auto) Urine Microscopic WBC Ur Squamous Epith Cells Amorphous Sediment - Imaging and Cardiology CT scan - abdomen Status: Report reviewed by me Assessment & Plan (1) Abdominal pain Assessment and Plan: CT demonstrates occlusion at origin of SMA with reconstitution distally. In view of the vact that only one vessel is shown to be abnormal and even that vessel is reconstituted distally. The abdominal pain may have been do to dehydration due to poor intake. It is reasonable to try a combination of Pletal along with lipid lowering and antiplatelet therapy. Today she was pain free. Status: Acute
[2017-05-28] MEDS: Levothyroxine 100 MCG TAB PO SCH (06:38)
[2017-05-28 06:58] LABS: BASO # 0.1 K/uL (0.0-0.2); BASO % 0.5 % (0.0-2.0); EOS % 0.2 % (0.0-4.0); HEMOGLOBIN 11.1 g/dL (12.0-16.0); LYMPH # 1.6 K/uL (1.0-4.3); LYMPH % 11.8 % (20.0-40.0); MEAN CELL VOLUME 87.4 fl (81.0-99.0); MEAN CORPUSCULAR HEMOGLOBIN 27.4 pg (27.0-31.0); MEAN CORPUSCULAR HGB CONC 31.3 g/dL (33.0-37.0); MEAN PLATELET VOLUME 8.5 fl (7.2-11.7); MONO # 1.3 K/uL (0.0-0.8); NEUT # 10.2 K/uL (1.8-7.0); NEUT % 77.5 % (50.0-75.0); RBC 4.07 Mil/uL (3.80-5.20); RED CELL DISTRIBUTION WIDTH 15.9 % (11.5-14.5); WHITE BLOOD COUNT 13.2 K/uL (4.8-10.8)
[2017-05-28 07:27] LABS: BLOOD UREA NITROGEN 15 mg/dl (7-17); CALCIUM 9.1 mg/dL (8.4-10.2); GFR AFRICAN-AMERICAN > 60; GFR NON-AFRICAN AMERICAN > 60
[2017-05-28] MEDS: Pantoprazole 40 mg EC Tab PO SCH (08:23)
[2017-05-28] MEDS: Fluticasone-Salmeterol 100-50mcg Diskus IH SCH ×2 (08:23→20:47)
[2017-05-28] MEDS: Cilostazol 50 mg Tab UD PO SCH (08:24)
[2017-05-28] MEDS ORDERED: Potassium Chloride 20 mEq ER Tab PO ONE (09:16)
--- NOTE | 2017-05-28 12:24 | CP.PCM.PN ---
Subjective - Date & Time of Evaluation Date of Evaluation: 05/28/17 Time of Evaluation: 12:00 - Subjective Subjective: no fever no SOB no CP noted to be tacycardic - will transfer to Telemetry abd pain better but with some LLQ discomfort Left leg pain , swelling - found to have DVT no diarrhea requesting stool laxative Objective - Vital Signs/Intake and Output Vital Signs (last 24 hours): Temp Pulse Resp BP Pulse Ox 97.6 F 105 H 20 111/70 93 L 05/28/17 08:17 05/28/17 08:17 05/28/17 08:17 05/28/17 08:17 05/28/17 08:17 - Medications Medications: Current Medications Acetaminophen (Tylenol 325mg Tab) 650 mg PO Q6 PRN PRN Reason: Pain, Mild (1-3) Acetaminophen (Tylenol 325mg Tab) 650 mg PO Q6 PRN PRN Reason: Fever >100.4 F Albuterol (Ventolin Hfa 90 Mcg/Actuation (8 G)) 2 puff IH Q4H PRN PRN Reason: Shortness of Breath Aspirin (Aspirin Chewable) 81 mg PO DAILY [facility] Last Admin: 05/28/17 08:23 Dose: 81 mg Atorvastatin Calcium (Lipitor) 20 mg PO DAILY [facility] Last Admin: 05/28/17 08:24 Dose: 20 mg Ketorolac Tromethamine (Toradol) 30 mg IVP Q6 PRN PRN Reason: Pain, severe (8-10) Last Admin: 05/28/17 03:22 Dose: 30 mg Levothyroxine Sodium (Synthroid) 100 mcg PO DAILY@0630 [facility] Last Admin: 05/28/17 06:38 Dose: 100 mcg Montelukast Sodium (Singulair) 10 mg PO DAILY [facility] Last Admin: 05/28/17 08:24 Dose: 10 mg Nitrofurantoin Macrocrystals (Macrobid) 100 mg PO Q12 [facility] Stop: 05/30/17 12:31 Last Admin: 05/28/17 08:23 Dose: 100 mg Ondansetron HCl (Zofran Inj) 4 mg IVP Q6 PRN PRN Reason: Nausea/Vomiting Pantoprazole Sodium (Protonix Ec Tab) 40 mg PO DAILY [facility] Last Admin: 05/28/17 08:23 Dose: 40 mg Rivaroxaban (Xarelto) 15 mg PO BIDWM [facility] PRN Reason: Protocol Stop: 06/17/17 21:01 Last Admin: 05/28/17 08:24 Dose: 15 mg Fluticasone/Salmeterol (Advair Diskus 100/50) 1 puff IH Q12 [facility] Last Admin: 05/28/17 08:23 Dose: 1 puff - Labs Labs: 05/28/17 05:25 05/28/17 05:25 PT 12.5 Seconds (9.8-13.1) 05/26/17 05:45 INR 1.1 (0.9-1.2) 05/26/17 05:45 APTT 28.5 Seconds (25.6-37.1) 05/25/17 08:07 - Constitutional Appears: No Acute Distress - Head Exam Head Exam: NORMAL INSPECTION, NORMOCEPHALIC - Eye Exam Eye Exam: EOMI, Normal appearance Pupil Exam: NORMAL ACCOMODATION - ENT Exam ENT Exam: Mucous Membranes Moist, Normal External Ear Exam - Neck Exam Neck Exam: Full ROM. absent: Meningismus - Respiratory Exam Respiratory Exam: NORMAL BREATHING PATTERN. absent: Respiratory Distress - Cardiovascular Exam Cardiovascular Exam: Tachycardia, REGULAR RHYTHM, +S1, +S2 - GI/Abdominal Exam GI & Abdominal Exam: Soft, Tenderness (mild LLQ tenderness), Normal Bowel Sounds - Extremities Exam Extremities Exam: Calf Tenderness (left ), Normal Capillary Refill - Back Exam Back Exam: Full ROM. absent: CVA tenderness (L), CVA tenderness (R) - Neurological Exam Neurological Exam: Alert, Awake, CN II-XII Intact, Oriented x3 - Psychiatric Exam Psychiatric exam: Normal Affect, Normal Mood - Skin Skin Exam: Dry, Normal Color, Warm Assessment and Plan - Assessment and Plan (Free Text) Assessment: 76 y/o female with PMH Hypothyroidism, Asthma, second hand smoker brought to ER by family for evaluation for severe abdominal pain . History obtained from patient and family. As per patient, she developed severe sharp 10/10 mid abdominal pain radiating to left flank this AM. She denies any constipation or diarrhea but gives history of poor PO intake with no appetite for some time , history that is corroborated by family members .As per family patient has been feeling weak and tired. 1 month ago she had left knee arthroscopy and repair. 2 weeks ago her son found her on the bathroom floor , after a fall due to weakness ,with a trail of diarrhea from her room to the bathroom . Patient was admitted at [facility] and was diagnosed with dehydration and after was discharged home. Family states that patient has very poor PO intake, no appetite , has no bowel or urinary control and wears diapers all the time, has bilateral knee arthritis and difficulty with walking due to weakness. 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 Status post cholecystectomy. Sigmoid diverticulosis without evidence of diverticulitis. No abnormal small bowel loops identified. GI consulted- Dr Chamberlain Patient complained of swollen Left thigh more than right : Doppler US : DVT Today 05/28 noted tachycardia - pt transferred to Telenetry CTA Chest to r/o PE ordered. 1. Abdominal pain most likely secondary to abdominal angina CT abdomen showed no diverticulitis, but extensive artherosclerotic disease GI consult with Dr. Chamberlain - rec Pletal and antiplatelet Started ASA, Atorvastatin and Pletal today Pletal d/c as pt was started on Xarelto Dylan 1.5 . patient has history of cholecystectomy and CT shows no stones lipase - normal 2. Venous Thromboembolism DVT , left r/o PE Pt was immobile s/p R knee surgery cont Xarelto 15 mg bid x 21 days started 05/27 pt tachycardiac Left leg swollen, tender CTA Chest to r/o PE Hematology consult - Dr Gayle 3. Hypothyroidism uncontrolled TSH 4.9 increased dose to 100 mcg 4.Asthma , mild intermittent Controlled resume Duonebs , O2 via [place] 5. Leukocytosis Most likely reactive and hemo concentration 6. Poor appetite denies depression nutrition eval 7. Arthritis On enbrel for many years PT eval CXR 05/28 : negative 8. DVT prophylaxis SCD Pt on Xarelto Discussed above hank with son Contreras - surrogate decision maker Full Code
--- NOTE | 2017-05-28 15:51 | RAD ---
HISTORY: COMPARISON: 08/17/2016. TECHNIQUE: Chest PA and lateral FINDINGS: LINES AND TUBES: None. LUNG AND PLEURA: The lungs are hyperinflated and there is peribronchial thickening with chronic changes in both lungs. No focal consolidation. HEART AND MEDIASTINUM: The heart is not enlarged. The hilar and mediastinal contours are within normal limits. SKELETAL STRUCTURES: The bony structures are within normal limits for the patient's age. VISUALIZED UPPER ABDOMEN: Normal. OTHER FINDINGS: None. IMPRESSION: No active pulmonary disease. COPD.
[2017-05-28] MEDS ORDERED: Sodium Chloride 0.9% 50 ML IV ONE (20:03)
[2017-05-28] MEDS ORDERED: Iodixanol 320 MG/ML 100 ML BOTTLE IV ONE (20:03)
--- NOTE | 2017-05-28 22:28 | CT ---
EXAM: CT Angiography Chest With Intravenous Contrast EXAM DATE/TIME: 05/28/2017 4:41 PM CLINICAL HISTORY: 76 years old, female; Condition or disease; Other: Dvt; Additional info: R/O pe TECHNIQUE: Axial computed tomographic angiography images of the chest with intravenous contrast using pulmonary embolism protocol. All CT scans at this facility use one or more dose reduction techniques, viz.: automated exposure control; ma/kV adjustment per patient size (including targeted exams where dose is matched to indication; i.e. head); or iterative reconstruction technique. MIP reconstructed images were created and reviewed. Coronal and sagittal reformatted images were created and reviewed. CONTRAST: 80 mL of [id number] administered intravenously. COMPARISON: No relevant prior studies available. FINDINGS: Cholecystectomy clips are present. Small focal herniation of fat into the post right thorax. No pulmonary embolism. No aortic dissection or aneurysm. No pleural or pericardial effussions. Bibasilar atelectasis/scarring. IMPRESSION: No acute findings.
[2017-05-29] MEDS: Levothyroxine 100 MCG TAB PO SCH (06:01)
[2017-05-29 06:07] LABS: HEMOGLOBIN 10.4 g/dL (12.0-16.0); MEAN CELL VOLUME 86.7 fl (81.0-99.0); MEAN CORPUSCULAR HEMOGLOBIN 27.9 pg (27.0-31.0); MEAN CORPUSCULAR HGB CONC 32.2 g/dL (33.0-37.0); RBC 3.74 Mil/uL (3.80-5.20); RED CELL DISTRIBUTION WIDTH 15.5 % (11.5-14.5); WHITE BLOOD COUNT 12.8 K/uL (4.8-10.8)
[2017-05-29 06:32] LABS: BLOOD UREA NITROGEN 7 mg/dl (7-17); CALCIUM 9.1 mg/dL (8.4-10.2); GFR AFRICAN-AMERICAN > 60; GFR NON-AFRICAN AMERICAN > 60
--- NOTE | 2017-05-29 07:54 | CARD ---
APPROVED REPORT EKG Measurement Heart [id number] <Conclusion> Sinus tachycardia Possible Left atrial enlargement Left anterior fascicular block Abnormal ECG
[2017-05-29] MEDS: Fluticasone-Salmeterol 100-50mcg Diskus IH SCH ×2 (08:56→21:06)
--- NOTE | 2017-05-29 08:56 | CP.PCM.CON ---
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 The patient reports to limited mobility since knee surgery in March. She denies chest pain and shortness of breath. She notes her abdominal pain increased in intensity over the past 2- 3 days prior to coming to the hospital. She also notes to swelling of her left leg over several days. Past medical history: asthma, hypothyroid Past surgical history: Right knee surgery, hysterectomy Family history: Mother had bowel cancer Social history: +2nd hand smoke Allergies: NKA Review of systems: All remaining review of systems including HEENT, cardiovascular, respiratory, gastrointestinal, genitourinary, musculoskeletal, dermatologic, neurologic, and psychiatric are negative unless mentioned in the HPI. Past Patient History - Infectious Disease Hx of Infectious Diseases: None - Tetanus Immunizations Tetanus Immunization: Unknown - Past Medical History & Family History Past Medical History?: Yes Past Family History: Reviewed and not pertinent - Past Social History Smoking Status: Never Smoked Chewing Tobacco Use: No Cigar Use: No Alcohol: None Drugs: Denies Home Situation {Lives}: Alone Domestic Violence: Negative - PULMONARY Hx Asthma: Yes - ENDOCRINE/METABOLIC Hx Hypothyroidism: Yes - MUSCULOSKELETAL/RHEUMATOLOGICAL Hx Rheumatoid Arthritis: Yes - GASTROINTESTINAL Hx Diverticulitis: Yes - PSYCHIATRIC Hx Substance Use: No - SURGICAL HISTORY Hx Hysterectomy: Yes Hx Orthopedic Surgery: Yes (Right knee) Other/Comment: Fractured right ankle. Sinus - ANESTHESIA Hx Anesthesia: Yes Hx Anesthesia Reactions: No Hx Malignant Hyperthermia: No Meds Home Medications: Home Medication List Medication Instructions Recorded Confirmed Type Aspirin 81 mg PO DAILY #30 tab.chew 05/26/17 Rx Atorvastatin [Lipitor] 20 mg PO DAILY #30 tab 05/26/17 Rx Levothyroxine [Synthroid] 100 mcg PO DAILY #30 tab 05/26/17 Rx Allergies/Adverse Reactions: Allergies Allergy/AdvReac Type Severity Reaction Status Date / Time No Known Allergies Allergy Verified 08/17/16 15:04 - Medications Medications: Current Medications Acetaminophen (Tylenol 325mg Tab) 650 mg PO Q6 PRN PRN Reason: Pain, Mild (1-3) Acetaminophen (Tylenol 325mg Tab) 650 mg PO Q6 PRN PRN Reason: Fever >100.4 F Albuterol (Ventolin Hfa 90 Mcg/Actuation (8 G)) 2 puff IH Q4H PRN PRN Reason: Shortness of Breath Atorvastatin Calcium (Lipitor) 20 mg PO DAILY [facility] Last Admin: 05/28/17 08:24 Dose: 20 mg Levothyroxine Sodium (Synthroid) 100 mcg PO DAILY@0630 [facility] Last Admin: 05/29/17 06:01 Dose: 100 mcg Montelukast Sodium (Singulair) 10 mg PO DAILY [facility] Last Admin: 05/28/17 08:24 Dose: 10 mg Nitrofurantoin Macrocrystals (Macrobid) 100 mg PO Q12 [facility] Stop: 05/30/17 12:31 Last Admin: 05/28/17 20:47 Dose: 100 mg Ondansetron HCl (Zofran Inj) 4 mg IVP Q6 PRN PRN Reason: Nausea/Vomiting Pantoprazole Sodium (Protonix Ec Tab) 40 mg PO DAILY [facility] Last Admin: 05/28/17 08:23 Dose: 40 mg Rivaroxaban (Xarelto) 15 mg PO BIDWM [facility] PRN Reason: Protocol Stop: 06/17/17 21:01 Last Admin: 05/28/17 16:07 Dose: 15 mg Fluticasone/Salmeterol (Advair Diskus 100/50) 1 puff IH Q12 [facility] Last Admin: 05/28/17 20:47 Dose: 1 puff Physical Exam - Head Exam Head Exam: ATRAUMATIC - Eye Exam Eye Exam: Normal appearance - ENT Exam ENT Exam: Mucous Membranes Dry - Respiratory Exam Respiratory Exam: NORMAL BREATHING PATTERN - Cardiovascular Exam Cardiovascular Exam: +S1, +S2 - GI/Abdominal Exam GI & Abdominal Exam: Normal Bowel Sounds - Extremities Exam Extremities exam: Positive for: pedal edema - Neurological Exam Neurological exam: Oriented x3 - Psychiatric Exam Psychiatric exam: Normal Affect, Normal Mood - Skin Skin Exam: Warm Results - Vital Signs Recent Vital Signs: Last Vital Signs Temp 98.7 F 05/29/17 08:00 Pulse 109 H 05/29/17 08:00 Resp 18 05/29/17 08:00 BP 107/68 05/29/17 08:00 Pulse Ox 93 L 05/29/17 08:00 - Labs Result Diagrams: 05/29/17 04:30 05/29/17 04:30 Labs: Laboratory Results - last 24 hr 05/28/17 05/28/17 05/29/17 11:13 15:52 00:12 WBC RBC Hgb Hct MCV MCH MCHC RDW Plt Count Sodium Potassium Chloride Carbon Dioxide Anion Gap BUN Creatinine Est GFR ( Amer) Est GFR (Non-Af Amer) POC Glucose (mg/dL) 150 H 141 H 163 H Random Glucose Calcium 05/29/17 05/29/17 05/29/17 04:30 04:30 05:10 WBC 12.8 H RBC 3.74 L Hgb 10.4 L Hct 32.5 L MCV 86.7 MCH 27.9 MCHC 32.2 L RDW 15.5 H Plt Count 253 Sodium 141 Potassium 3.4 L Chloride 105 Carbon Dioxide 24 Anion Gap 15 BUN 7 Creatinine 0.5 L Est GFR ( Amer) > 60 Est GFR (Non-Af Amer) > 60 POC Glucose (mg/dL) 134 H Random Glucose 132 H Calcium 9.1 Assessment & Plan (1) DVT (deep venous thrombosis) Assessment and Plan: suspect provoked from immobility on therapeutic anticoagulation consider evaluation for catheter directed thrombolysis given extensive venous clotting of the left LE Status: Acute (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 need for antiplatelet on Xarelto on lipitor Status: Acute (3) Leukocytosis Assessment and Plan: likely reactive Thank you for this interesting consult. Status: Acute
[2017-05-29] MEDS: Pantoprazole 40 mg EC Tab PO SCH (08:57)
[2017-05-29] MEDS ORDERED: Enoxaparin 120 mg Syringe SC SCH (09:00)
--- NOTE | 2017-05-29 09:44 | US ---
PROCEDURE: Duplex ultrasound of the bilateral lower extremity arteries. HISTORY: r/o PVD COMPARISON: None available. TECHNIQUE: Grayscale and duplex Doppler evaluation of the bilateral common femoral, superficial femoral, popliteal, posterior tibial and dorsalis pedis arteries was performed.. FINDINGS: RIGHT LOWER EXTREMITY: RIGHT COMMON FEMORAL ARTERY: Widely patent. Maximal flow velocity of 75.3 cm/s. RIGHT SUPERFICIAL FEMORAL ARTERY: Widely patent. Maximal flow velocity of 72.8 cm/s. RIGHT POPLITEAL ARTERY:Widely patent. Maximal flow velocity of 26.8 cm/s. RIGHT POSTERIOR TIBIAL ARTERY: Widely patent. Maximal flow velocity of 23.1 cm/s. RIGHT DORSALIS PEDIS ARTERY: Widely patent. Maximal flow velocity of 17.6 cm/s. LEFT LOWER EXTREMITY: LEFT COMMON FEMORAL ARTERY: Widely patent. Maximal flow velocity of 104.9 cm/s. LEFT SUPERFICIAL FEMORAL ARTERY: Widely patent. Maximal flow velocity of 87.1 cm/s. LEFT POPLITEAL ARTERY:Widely patent. Maximal flow velocity of 55.9 cm/s. LEFT POSTERIOR TIBIAL ARTERY: Widely patent. Maximal flow velocity of 53.3 cm/s. LEFT DORSALIS PEDIS ARTERY: Widely patent. Maximal flow velocity of 44.1 cm/s. OTHER FINDINGS: None. IMPRESSION: Normal Duplex Doppler of the bilateral lower extremity arteries.
--- NOTE | 2017-05-29 17:12 | CP.PCM.PN ---
Subjective - Date & Time of Evaluation Date of Evaluation: 05/29/17 Time of Evaluation: 17:30 - Subjective Subjective: Patient seen and examined bedside. Feeling a little better. No acute issues overnight. Tachycardic HR 112 , denies any CP , SOB , palpitations. No acute issues overnight CTA chest showed no PE Still with swelling of left thigh with scattered coughing spells family bedside . All questions answered Objective - Vital Signs/Intake and Output Vital Signs (last 24 hours): Temp Pulse Resp BP Pulse Ox 99.2 F 115 H 20 97/68 L 95 05/29/17 15:57 05/29/17 16:22 05/29/17 15:57 05/29/17 15:57 05/29/17 16:22 - Medications Medications: Current Medications Acetaminophen (Tylenol 325mg Tab) 650 mg PO Q6 PRN PRN Reason: Pain, Mild (1-3) Acetaminophen (Tylenol 325mg Tab) 650 mg PO Q6 PRN PRN Reason: Fever >100.4 F Albuterol (Ventolin Hfa 90 Mcg/Actuation (8 G)) 2 puff IH Q4H PRN PRN Reason: Shortness of Breath Atorvastatin Calcium (Lipitor) 20 mg PO DAILY [facility] Last Admin: 05/29/17 08:57 Dose: 20 mg Enoxaparin Sodium (Lovenox) 120 mg SC DAILY [facility] PRN Reason: Protocol Levothyroxine Sodium (Synthroid) 100 mcg PO DAILY@0630 [facility] Last Admin: 05/29/17 06:01 Dose: 100 mcg Montelukast Sodium (Singulair) 10 mg PO DAILY [facility] Last Admin: 05/29/17 08:57 Dose: 10 mg Nitrofurantoin Macrocrystals (Macrobid) 100 mg PO Q12 [facility] Stop: 05/30/17 12:31 Last Admin: 05/29/17 08:57 Dose: 100 mg Ondansetron HCl (Zofran Inj) 4 mg IVP Q6 PRN PRN Reason: Nausea/Vomiting Pantoprazole Sodium (Protonix Ec Tab) 40 mg PO DAILY [facility] Last Admin: 05/29/17 08:57 Dose: 40 mg Fluticasone/Salmeterol (Advair Diskus 100/50) 1 puff IH Q12 [facility] Last Admin: 05/29/17 08:56 Dose: 1 puff - Labs Labs: 05/29/17 04:30 05/29/17 04:30 PT 12.5 Seconds (9.8-13.1) 05/26/17 05:45 INR 1.1 (0.9-1.2) 05/26/17 05:45 APTT 28.5 Seconds (25.6-37.1) 05/25/17 08:07 - Constitutional Appears: Non-toxic, No Acute Distress - Head Exam Head Exam: ATRAUMATIC, NORMAL INSPECTION, NORMOCEPHALIC - Eye Exam Eye Exam: EOMI, Normal appearance, PERRL Pupil Exam: NORMAL ACCOMODATION - ENT Exam ENT Exam: Mucous Membranes Moist, Normal Exam - Neck Exam Neck Exam: Full ROM, Normal Inspection - Respiratory Exam Respiratory Exam: Clear to Ausculation Bilateral, NORMAL BREATHING PATTERN. absent: Rales, Rhonchi, Wheezes - Cardiovascular Exam Cardiovascular Exam: Tachycardia, REGULAR RHYTHM, +S1, +S2. absent: JVD - GI/Abdominal Exam GI & Abdominal Exam: Soft, Normal Bowel Sounds. absent: Distended, Guarding, Tenderness, Rebound - Rectal Exam Rectal Exam: Deferred - Extremities Exam Extremities Exam: absent: Pedal Edema Additional comments: left thigh bigger than right - Back Exam Back Exam: NORMAL INSPECTION - Neurological Exam Neurological Exam: Alert, Awake, CN II-XII Intact, Oriented x3 - Psychiatric Exam Psychiatric exam: Normal Affect - Skin Skin Exam: Dry, Intact, Normal Color, Warm Assessment and Plan - Assessment and Plan (Free Text) Assessment: 76 y/o female with PMH Hypothyroidism, Asthma, second hand smoker brought to ER by family for evaluation for severe abdominal pain . History obtained from patient and family. As per patient, she developed severe sharp 10/10 mid abdominal pain radiating to left flank . She denied any constipation or diarrhea but gave history of poor PO intake with no appetite for some time , history that is corroborated by family members .As per family patient has been feeling weak and tired. 1 month ago she had right knee arthroscopy and meniscal repair and since than has not been ambulating a lot . 2 weeks ago her son found her on the bathroom floor , after a fall due to weakness ,with a trail of diarrhea from her room to the bathroom . Patient was admitted at [facility] and was diagnosed with dehydration and after was discharged home. Family states that patient has very poor PO intake, no appetite , has no bowel or urinary control and wears diapers all the time, has bilateral knee arthritis and difficulty with walking due to weakness. 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 Status post cholecystectomy. Sigmoid diverticulosis without evidence of diverticulitis. No abnormal small bowel loops identified. GI consulted- Dr Chamberlain Patient complained of swollen Left thigh more than right : Doppler US showed extensive DVT CTA showed no PE 1. Abdominal pain most likely secondary to abdominal angina or possible referred pain due to DVT ? CT abdomen showed no diverticulitis, but extensive artherosclerotic disease GI consult with Dr. Chamberlain appreciated .Pletal and antiplatelet was recommended Started ASA, Atorvastatin and Pletal but discontinued since patient was started on xarelto Dylan 1.5 . patient has history of cholecystectomy and CT shows no stones lipase - normal Abdominal pain resolved 2. Venous Thromboembolism extensive DVT on the left CTA showed no PE consulted IR today for possible direct catheter thrombolysis and case discussed. Patient is a godd candidate. plan for tyransfer to [facility] on Monday. Discontinued Xarelto today . will start Therapeutic Lovenox in AM and hold the day of procedure Discussed with family and patient thrombolysis as well as IVC filter option . Family agrees to proceed with thrombolysis Hematology consult - Dr Gayle 3. Hypothyroidism uncontrolled TSH 4.9 increased dose to 100 mcg 4.Asthma , mild intermittent Controlled resume Duonebs , O2 via [place] 5. Leukocytosis Most likely reactive and hemo concentration 6. Poor appetite denies depression nutrition eval 7. Arthritis On enbrel for many years PT eval CXR 05/28 : negative 8. DVT prophylaxis lovenox therapeutic in AM SCD Patient is DNR/DNI and has advanced Life directives that states no one can overturn her decisions
[2017-05-30 05:45] LABS: MEAN CORPUSCULAR HEMOGLOBIN 27.9 pg (27.0-31.0); MEAN CORPUSCULAR HGB CONC 32.1 g/dL (33.0-37.0); RBC 3.58 Mil/uL (3.80-5.20); RED CELL DISTRIBUTION WIDTH 15.8 % (11.5-14.5); WHITE BLOOD COUNT 11.6 K/uL (4.8-10.8)
[2017-05-30 06:03] LABS: BLOOD UREA NITROGEN 10 mg/dl (7-17); CALCIUM 9.1 mg/dL (8.4-10.2); GFR AFRICAN-AMERICAN > 60; GFR NON-AFRICAN AMERICAN > 60
[2017-05-30 06:19] LABS: INR 1.3 (0.9-1.2); PROTHROMBIN TIME 14.2 Seconds (9.8-13.1)
[2017-05-30] MEDS: Levothyroxine 100 MCG TAB PO SCH (06:46)
[2017-05-30] MEDS: Fluticasone-Salmeterol 100-50mcg Diskus IH SCH ×2 (09:13→21:45)
[2017-05-30] MEDS: Pantoprazole 40 mg EC Tab PO SCH (09:14)
[2017-05-30] MEDS ORDERED: Enoxaparin 120 mg Syringe SC SCH (18:00)
--- NOTE | 2017-05-30 18:12 | CP.PCM.PN ---
Subjective - Date & Time of Evaluation Date of Evaluation: 05/30/17 Time of Evaluation: 17:00 - Subjective Subjective: Patient seen and examined bedside. Feeling better. Tachycardic HR 117 With swelling of LLE and edema No acute issues overnight Agrees for direct catheter thrombolysis procedure in [facility] past midnight Objective - Vital Signs/Intake and Output Vital Signs (last 24 hours): Temp Pulse Resp BP Pulse Ox 98.7 F 117 H 20 107/58 L 95 05/30/17 16:00 05/30/17 16:00 05/30/17 16:00 05/30/17 16:00 05/30/17 16:00 - Medications Medications: Current Medications Acetaminophen (Tylenol 325mg Tab) 650 mg PO Q6 PRN PRN Reason: Pain, Mild (1-3) Acetaminophen (Tylenol 325mg Tab) 650 mg PO Q6 PRN PRN Reason: Fever >100.4 F Albuterol (Ventolin Hfa 90 Mcg/Actuation (8 G)) 2 puff IH Q4H PRN PRN Reason: Shortness of Breath Atorvastatin Calcium (Lipitor) 20 mg PO DAILY [facility] Last Admin: 05/30/17 09:14 Dose: 20 mg Enoxaparin Sodium (Lovenox) 120 mg SC 1800 [facility] PRN Reason: Protocol Levothyroxine Sodium (Synthroid) 100 mcg PO DAILY@0630 [facility] Last Admin: 05/30/17 06:46 Dose: 100 mcg Montelukast Sodium (Singulair) 10 mg PO DAILY [facility] Last Admin: 05/30/17 09:14 Dose: 10 mg Ondansetron HCl (Zofran Inj) 4 mg IVP Q6 PRN PRN Reason: Nausea/Vomiting Pantoprazole Sodium (Protonix Ec Tab) 40 mg PO DAILY [facility] Last Admin: 05/30/17 09:14 Dose: 40 mg Fluticasone/Salmeterol (Advair Diskus 100/50) 1 puff IH Q12 [facility] Last Admin: 05/30/17 09:13 Dose: 1 puff - Labs Labs: 05/30/17 04:25 05/30/17 04:25 PT 14.2 Seconds (9.8-13.1) H 05/30/17 04:25 INR 1.3 (0.9-1.2) H 05/30/17 04:25 APTT 28.5 Seconds (25.6-37.1) 05/25/17 08:07 - Constitutional Appears: Non-toxic, No Acute Distress - Head Exam Head Exam: ATRAUMATIC, NORMAL INSPECTION, NORMOCEPHALIC - Eye Exam Eye Exam: EOMI, Normal appearance, PERRL Pupil Exam: NORMAL ACCOMODATION - ENT Exam ENT Exam: Mucous Membranes Moist, Normal Exam - Respiratory Exam Respiratory Exam: Clear to Ausculation Bilateral. absent: Rales, Wheezes, Respiratory Distress - Cardiovascular Exam Cardiovascular Exam: Tachycardia, +S1, +S2. absent: JVD - GI/Abdominal Exam GI & Abdominal Exam: Soft, Normal Bowel Sounds. absent: Distended, Guarding, Tenderness, Rebound - Rectal Exam Rectal Exam: Deferred - Extremities Exam Extremities Exam: Normal Capillary Refill, Pedal Edema (1 + LLe and swelling) - Back Exam Back Exam: NORMAL INSPECTION - Neurological Exam Neurological Exam: Alert, Awake, CN II-XII Intact, Oriented x3 - Psychiatric Exam Psychiatric exam: Normal Affect - Skin Skin Exam: Dry, Intact, Normal Color, Warm Assessment and Plan - Assessment and Plan (Free Text) Assessment: 76 y/o female with PMH Hypothyroidism, Asthma, second hand smoker brought to ER by family for evaluation for severe abdominal pain . History obtained from patient and family. As per patient, she developed severe sharp 10/10 mid abdominal pain radiating to left flank . She denied any constipation or diarrhea but gave history of poor PO intake with no appetite for some time , history that is corroborated by family members .As per family patient has been feeling weak and tired. 1 month ago she had right knee arthroscopy and meniscal repair and since than has not been ambulating a lot . 2 weeks ago her son found her on the bathroom floor , after a fall due to weakness ,with a trail of diarrhea from her room to the bathroom . Patient was admitted at [facility] and was diagnosed with dehydration and after was discharged home. Family states that patient has very poor PO intake, no appetite , has no bowel or urinary control and wears diapers all the time, has bilateral knee arthritis and difficulty with walking due to weakness. 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 Status post cholecystectomy. Sigmoid diverticulosis without evidence of diverticulitis. No abnormal small bowel loops identified. GI consulted- Dr Chamberlain Patient complained of swollen Left thigh more than right : Doppler US showed extensive DVT CTA showed no PE Patient started on Lovenox therapeutic .Plan for direct catheter thrombolysis in AM at [facility] 1. Abdominal pain most likely secondary to abdominal angina or possible referred pain due to extensive LE DVT -- resolved CT abdomen showed no diverticulitis, but extensive artherosclerotic disease GI consult with Dr. Chamberlain appreciated .Pletal and antiplatelet was recommended but discontinued since patient was started on anticoagulation due to risk of bleeding since patienrt is Jehovah witness patient has history of cholecystectomy and CT shows no stones lipase - normal Abdominal pain resolved Venous doppler showed extensive DVT of LLE. On lovenox therapeutic at present . 2. Venous Thromboembolism extensive DVT on the left CTA showed no PE consulted IR for possible direct catheter thrombolysis and case discussed. Patient is a good candidate for the procedure . Plan for transfer to [facility] in AM . Discontinued Xarelto and started on therapeutic lovenox. Will hold lovenox in Am and keep NPO past midnight Will transfer to [facility] Discussed with family and patient thrombolysis as well as IVC filter option . Family agrees to proceed with thrombolysis Hematology consulted , Dr Gayle 3. Hypothyroidism uncontrolled TSH 4.9 increased dose to 100 mcg 4.Asthma , mild intermittent Controlled resume Duonebs , O2 via [place] 5. Leukocytosis Most likely reactive and hemo concentration 6. Poor appetite denies depression nutrition eval 7. Arthritis On enbrel for many years PT eval CXR 05/28 : negative 8. DVT prophylaxis lovenox therapeutic SCD Patient is DNR/DNI and has advanced directives that states no one can overturn her decisions She is Jehovah witness
--- NOTE | 2017-05-30 20:58 | CP.PCM.PN ---
Subjective - Date & Time of Evaluation Date of Evaluation: 05/30/17 Time of Evaluation: 12:00 - Subjective Subjective: Has some abdominal discomfort, family at bedside Objective - Vital Signs/Intake and Output Vital Signs (last 24 hours): Temp Pulse Resp BP Pulse Ox 98.3 F 116 H 14 110/68 95 05/30/17 20:11 05/30/17 20:11 05/30/17 20:11 05/30/17 20:11 05/30/17 20:11 - Medications Medications: Current Medications Acetaminophen (Tylenol 325mg Tab) 650 mg PO Q6 PRN PRN Reason: Pain, Mild (1-3) Acetaminophen (Tylenol 325mg Tab) 650 mg PO Q6 PRN PRN Reason: Fever >100.4 F Albuterol (Ventolin Hfa 90 Mcg/Actuation (8 G)) 2 puff IH Q4H PRN PRN Reason: Shortness of Breath Atorvastatin Calcium (Lipitor) 20 mg PO DAILY [facility] Last Admin: 05/30/17 09:14 Dose: 20 mg Enoxaparin Sodium (Lovenox) 120 mg SC 1800 [facility] PRN Reason: Protocol Last Admin: 05/30/17 18:10 Dose: 120 mg Levothyroxine Sodium (Synthroid) 100 mcg PO DAILY@0630 [facility] Last Admin: 05/30/17 06:46 Dose: 100 mcg Montelukast Sodium (Singulair) 10 mg PO DAILY [facility] Last Admin: 05/30/17 09:14 Dose: 10 mg Ondansetron HCl (Zofran Inj) 4 mg IVP Q6 PRN PRN Reason: Nausea/Vomiting Pantoprazole Sodium (Protonix Ec Tab) 40 mg PO DAILY [facility] Last Admin: 05/30/17 09:14 Dose: 40 mg Fluticasone/Salmeterol (Advair Diskus 100/50) 1 puff IH Q12 [facility] Last Admin: 05/30/17 09:13 Dose: 1 puff - Labs Labs: 05/30/17 04:25 05/30/17 04:25 PT 14.2 Seconds (9.8-13.1) H 05/30/17 04:25 INR 1.3 (0.9-1.2) H 05/30/17 04:25 APTT 28.5 Seconds (25.6-37.1) 05/25/17 08:07 - Head Exam Head Exam: ATRAUMATIC - Eye Exam Eye Exam: Normal appearance - ENT Exam ENT Exam: Mucous Membranes Dry - Respiratory Exam Respiratory Exam: NORMAL BREATHING PATTERN - Cardiovascular Exam Cardiovascular Exam: +S1, +S2 - GI/Abdominal Exam GI & Abdominal Exam: Normal Bowel Sounds - Extremities Exam Extremities Exam: Pedal Edema Assessment and Plan (1) DVT (deep venous thrombosis) Assessment & Plan: provoked from immobility post knee surgery on anticoagulation for catheter directed thrombolysis given extensive clot burden above and below the knee Status: Acute (2) Mesenteric artery thrombosis Assessment & Plan: on anticoagulation Status: Acute (3) Leukocytosis Status: Acute
[2017-05-31] MEDS: Levothyroxine 100 MCG TAB PO SCH (06:17)
[2017-05-31 07:30] LABS: INR 1.1 (0.9-1.2); PROTHROMBIN TIME 12.4 Seconds (9.8-13.1)
[2017-05-31] MEDS: Fluticasone-Salmeterol 100-50mcg Diskus IH SCH ×2 (09:08→22:25)
[2017-05-31] MEDS: Pantoprazole 40 mg EC Tab PO SCH (09:09)
[2017-05-31 09:52] LABS: BLOOD UREA NITROGEN 11 mg/dl (7-17); CALCIUM 9.3 mg/dL (8.4-10.2); GFR AFRICAN-AMERICAN > 60; GFR NON-AFRICAN AMERICAN > 60
[2017-05-31] MEDS ORDERED: Heparin 25,000units in D5W 25,000 UNITS/250 ML BAG IV SCH ×3 (20:00→23:15)
--- NOTE | 2017-05-31 20:02 | CP.PCM.PN ---
Subjective - Date & Time of Evaluation Date of Evaluation: 05/31/17 Time of Evaluation: 08:00 - Subjective Subjective: No acute issues overnight. Hemodynamically stable, afebrile, tachycardic Transferred to [facility] for thrombolysis. Objective - Vital Signs/Intake and Output Vital Signs (last 24 hours): Temp Pulse Resp BP Pulse Ox 97.8 F 94 H 18 105/63 95 05/31/17 09:00 05/31/17 09:00 05/31/17 09:00 05/31/17 09:00 05/31/17 09:00 - Medications Medications: Current Medications Acetaminophen (Tylenol 325mg Tab) 650 mg PO Q6 PRN PRN Reason: Pain, Mild (1-3) Acetaminophen (Tylenol 325mg Tab) 650 mg PO Q6 PRN PRN Reason: Fever >100.4 F Albuterol (Ventolin Hfa 90 Mcg/Actuation (8 G)) 2 puff IH Q4H PRN PRN Reason: Shortness of Breath Atorvastatin Calcium (Lipitor) 20 mg PO DAILY [facility] Last Admin: 05/31/17 09:09 Dose: Not Given Heparin Sodium/Dextrose (Heparin 25,000 Units/250ml In D5w) 25,000 units in 250 mls @ 5 mls/hr IV .Q24H [facility] PRN Reason: Protocol Levothyroxine Sodium (Synthroid) 100 mcg PO DAILY@0630 [facility] Last Admin: 05/31/17 06:17 Dose: 100 mcg Montelukast Sodium (Singulair) 10 mg PO DAILY [facility] Last Admin: 05/31/17 09:09 Dose: Not Given Ondansetron HCl (Zofran Inj) 4 mg IVP Q6 PRN PRN Reason: Nausea/Vomiting Pantoprazole Sodium (Protonix Ec Tab) 40 mg PO DAILY [facility] Last Admin: 05/31/17 09:09 Dose: Not Given Fluticasone/Salmeterol (Advair Diskus 100/50) 1 puff IH Q12 [facility] Last Admin: 05/31/17 09:08 Dose: 1 puff - Labs Labs: 05/30/17 04:25 05/31/17 09:00 PT 12.4 Seconds (9.8-13.1) 05/31/17 04:45 INR 1.1 (0.9-1.2) 05/31/17 04:45 APTT 28.5 Seconds (25.6-37.1) 05/25/17 08:07 - Constitutional Appears: Non-toxic, No Acute Distress - Head Exam Head Exam: ATRAUMATIC, NORMAL INSPECTION, NORMOCEPHALIC - Eye Exam Eye Exam: EOMI, Normal appearance, PERRL Pupil Exam: NORMAL ACCOMODATION - ENT Exam ENT Exam: Mucous Membranes Moist, Normal Exam - Neck Exam Neck Exam: Full ROM, Normal Inspection - Respiratory Exam Respiratory Exam: Clear to Ausculation Bilateral, NORMAL BREATHING PATTERN. absent: Rales, Rhonchi, Wheezes, Respiratory Distress - Cardiovascular Exam Cardiovascular Exam: Tachycardia, REGULAR RHYTHM, +S1, +S2. absent: JVD - GI/Abdominal Exam GI & Abdominal Exam: Soft, Normal Bowel Sounds. absent: Distended, Guarding, Tenderness, Rebound - Rectal Exam Rectal Exam: Deferred - Extremities Exam Extremities Exam: Normal Capillary Refill, Pedal Edema (LLE 1 +. LLE swelling ) - Back Exam Back Exam: NORMAL INSPECTION - Neurological Exam Neurological Exam: Alert, Awake, CN II-XII Intact, Oriented x3 - Psychiatric Exam Psychiatric exam: Normal Affect, Normal Mood - Skin Skin Exam: Dry, Intact, Normal Color, Warm Assessment and Plan - Assessment and Plan (Free Text) Assessment: 76 y/o female with PMH Hypothyroidism, Asthma, second hand smoker brought to ER by family for evaluation for severe abdominal pain . History obtained from patient and family. As per patient, she developed severe sharp 10/10 mid abdominal pain radiating to left flank . She denied any constipation or diarrhea but gave history of poor PO intake with no appetite for some time , history that is corroborated by family members .As per family patient has been feeling weak and tired. 1 month ago she had right knee arthroscopy and meniscal repair and since than has not been ambulating a lot . 2 weeks ago her son found her on the bathroom floor , after a fall due to weakness ,with a trail of diarrhea from her room to the bathroom . Patient was admitted at [facility] and was diagnosed with dehydration and after was discharged home. Family states that patient has very poor PO intake, no appetite , has no bowel or urinary control and wears diapers all the time, has bilateral knee arthritis and difficulty with walking due to weakness. 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 Status post cholecystectomy. Sigmoid diverticulosis without evidence of diverticulitis. No abnormal small bowel loops identified. GI consulted- Dr Chamberlain Patient complained of swollen Left thigh more than right : Doppler US showed extensive DVT CTA showed no PE Patient started on Lovenox therapeutic .Discussed with IR and transferred today to [facility] for direct catheter thrombolysis . 1. Venous Thromboembolism extensive DVT on the left with extension to IVC CTA showed no PE consulted IR and case discussed. Patient is a good candidate for direct catheter Thrombolysis. Transferred to [facility] and had :DVT thrombectomy of IVC, left iliac vein, SFV, popliteal vein, OXYACETYLENE TORCH OPERATOR left common iliac vein, intravascular stent placement left common iliac vein Discussed with Dr. North who recommends Heparin Drip for 24 hours post procedure than to start anticoagulation for 6 months. Will discuss with patient anticoagulation options since patient is Jehovah witness IVC filter is not necessary at this time Continue monitoring in telemetry 2 Abdominal pain most likely secondary to extensive VTE extending up to IVC and iliac veins CT abdomen showed no diverticulitis, but extensive artherosclerotic disease US LE showed extensive DVT extending to left iliofemoral and IVC s/p thrombectomy/ thrombolysis today with stent placement to left common iliac vein Start heparin drip for 24 hours than convert to PO anticoagulation 3. Hypothyroidism uncontrolled TSH 4.9 increased dose to 100 mcg 4.Asthma , mild intermittent Controlled resume Duonebs , O2 via [place] 5. Leukocytosis Most likely reactive and hemo concentration 6. Poor appetite denies depression nutrition eval 7. Arthritis On enbrel for many years PT eval CXR 05/28 : negative 8. DVT prophylaxis lovenox therapeutic SCD Patient is DNR/DNI and has advanced directives that states no one can overturn her decisions She is Jehovah witness
--- NOTE | 2017-05-31 22:09 | CP.PCM.PN ---
Subjective - Date & Time of Evaluation Date of Evaluation: 05/31/17 Time of Evaluation: 10:00 - Subjective Subjective: Catheter directed thrombolysis at [facility]. Objective - Vital Signs/Intake and Output Vital Signs (last 24 hours): Temp Pulse Resp BP Pulse Ox 97.9 F 93 H 14 144/82 97 05/31/17 20:10 05/31/17 20:10 05/31/17 20:10 05/31/17 20:10 05/31/17 20:10 - Medications Medications: Current Medications Acetaminophen (Tylenol 325mg Tab) 650 mg PO Q6 PRN PRN Reason: Pain, Mild (1-3) Acetaminophen (Tylenol 325mg Tab) 650 mg PO Q6 PRN PRN Reason: Fever >100.4 F Albuterol (Ventolin Hfa 90 Mcg/Actuation (8 G)) 2 puff IH Q4H PRN PRN Reason: Shortness of Breath Atorvastatin Calcium (Lipitor) 20 mg PO DAILY [facility] Last Admin: 05/31/17 09:09 Dose: Not Given Heparin Sodium/Dextrose (Heparin 25,000 Units/250ml In D5w) 25,000 units in 250 mls @ 5 mls/hr IV .Q24H [facility] PRN Reason: Protocol Levothyroxine Sodium (Synthroid) 100 mcg PO DAILY@0630 [facility] Last Admin: 05/31/17 06:17 Dose: 100 mcg Montelukast Sodium (Singulair) 10 mg PO DAILY [facility] Last Admin: 05/31/17 09:09 Dose: Not Given Ondansetron HCl (Zofran Inj) 4 mg IVP Q6 PRN PRN Reason: Nausea/Vomiting Pantoprazole Sodium (Protonix Ec Tab) 40 mg PO DAILY [facility] Last Admin: 05/31/17 09:09 Dose: Not Given Fluticasone/Salmeterol (Advair Diskus 100/50) 1 puff IH Q12 [facility] Last Admin: 05/31/17 09:08 Dose: 1 puff - Labs Labs: 05/30/17 04:25 05/31/17 09:00 PT 12.4 Seconds (9.8-13.1) 05/31/17 04:45 INR 1.1 (0.9-1.2) 05/31/17 04:45 APTT 28.5 Seconds (25.6-37.1) 05/25/17 08:07 - Head Exam Head Exam: ATRAUMATIC - Eye Exam Eye Exam: Normal appearance - ENT Exam ENT Exam: Mucous Membranes Dry - Respiratory Exam Respiratory Exam: NORMAL BREATHING PATTERN - Cardiovascular Exam Cardiovascular Exam: +S1, +S2 - GI/Abdominal Exam GI & Abdominal Exam: Normal Bowel Sounds - Extremities Exam Extremities Exam: Pedal Edema Assessment and Plan (1) DVT (deep venous thrombosis) Assessment & Plan: catheter directed thrombolysis outpatient anticoagulation Status: Acute (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
[2017-06-01 05:35] LABS: HEMOGLOBIN 9.3 g/dL (12.0-16.0); MEAN CELL VOLUME 87.3 fl (81.0-99.0); MEAN CORPUSCULAR HEMOGLOBIN 27.5 pg (27.0-31.0); MEAN CORPUSCULAR HGB CONC 31.5 g/dL (33.0-37.0); RBC 3.39 Mil/uL (3.80-5.20); RED CELL DISTRIBUTION WIDTH 16.4 % (11.5-14.5)
[2017-06-01 05:40] LABS: BLOOD UREA NITROGEN 12 mg/dl (7-17); CALCIUM 8.7 mg/dL (8.4-10.2); GFR AFRICAN-AMERICAN > 60; GFR NON-AFRICAN AMERICAN > 60
[2017-06-01] MEDS: Levothyroxine 100 MCG TAB PO SCH (06:42)
[2017-06-01] MEDS: Fluticasone-Salmeterol 100-50mcg Diskus IH SCH ×2 (09:16→21:23)
[2017-06-01] MEDS: Pantoprazole 40 mg EC Tab PO SCH (09:17)
[2017-06-01 10:53] LABS: INR 1.3 (0.9-1.2); PARTIAL THROMBOPLASTIN TIME 98.9 Seconds (25.6-37.1); PROTHROMBIN TIME 13.9 Seconds (9.8-13.1)
[2017-06-01] MEDS ORDERED: Heparin 25,000units in D5W 25,000 UNITS/250 ML BAG IV SCH (15:15)
--- NOTE | 2017-06-01 15:37 | CP.PCM.PN ---
Addendum entered and electronically signed by Darwin Landon DPM 06/01/17 16:58 : With physical examination, patient's surgical site to the left lower extremitiy was c/d/i. No hematoma, no fluctuatance or abscess noted; no clinical signs of infection to surgical site; temperature was wnl, no tenderness to palpation to the entire left LE. There is mild swelling noted to the entire left LE. Original Note: <Darwin Landon - Last Filed: 06/01/17 16:57> Subjective - Date & Time of Evaluation Date of Evaluation: 06/01/17 Time of Evaluation: 08:00 - Subjective Subjective: Hospitalist Progress Note for Dr. Ramirez 76 y.o female seen and evaluated at bedside in the AM 1 day s/p left DVT thrombectomy and stent placement secondary to IVC and iliofemoral DVT. She is seen resting comfortably in bed, in NAD, and AA0x3. Patient reports that she is doing okay. She reports there is swelling present to her right lower extremity but denies pain. She does report discomfort to her entire body. She denies calf pain. She denies acute overnight events. Denies n/v/sob/cp/chills or f. Objective - Vital Signs/Intake and Output Vital Signs (last 24 hours): Temp Pulse Resp BP Pulse Ox 98.8 F 117 H 20 99/64 L 96 06/01/17 12:00 06/01/17 12:00 06/01/17 12:00 06/01/17 12:00 06/01/17 12:00 - Medications Medications: Current Medications Acetaminophen (Tylenol 325mg Tab) 650 mg PO Q6 PRN PRN Reason: Pain, Mild (1-3) Last Admin: 06/01/17 15:12 Dose: 650 mg Acetaminophen (Tylenol 325mg Tab) 650 mg PO Q6 PRN PRN Reason: Fever >100.4 F Albuterol (Ventolin Hfa 90 Mcg/Actuation (8 G)) 2 puff IH Q4H PRN PRN Reason: Shortness of Breath Atorvastatin Calcium (Lipitor) 20 mg PO DAILY [facility] Last Admin: 06/01/17 09:16 Dose: 20 mg Heparin Sodium/Dextrose (Heparin 25,000 Units/250ml In D5w) 25,000 units in 250 mls @ 14 mls/hr IV .[id number] [facility] PRN Reason: Protocol Last Admin: 06/01/17 00:02 Dose: 14 mls/hr Heparin Sodium/Dextrose (Heparin 25,000 Units/250ml In D5w) 25,000 units in 250 mls @ 11 mls/hr IV .[id number] [facility] PRN Reason: Protocol Levothyroxine Sodium (Synthroid) 100 mcg PO DAILY@0630 [facility] Last Admin: 06/01/17 06:42 Dose: 100 mcg Montelukast Sodium (Singulair) 10 mg PO DAILY [facility] Last Admin: 06/01/17 09:17 Dose: 10 mg Ondansetron HCl (Zofran Inj) 4 mg IVP Q6 PRN PRN Reason: Nausea/Vomiting Pantoprazole Sodium (Protonix Ec Tab) 40 mg PO DAILY [facility] Last Admin: 06/01/17 09:17 Dose: 40 mg Fluticasone/Salmeterol (Advair Diskus 100/50) 1 puff IH Q12 [facility] Last Admin: 06/01/17 09:16 Dose: 1 puff - Labs Labs: 06/01/17 05:05 06/01/17 05:05 PT 13.9 Seconds (9.8-13.1) H 06/01/17 10:35 INR 1.3 (0.9-1.2) H 06/01/17 10:35 APTT 98.9 Seconds (25.6-37.1) H D 06/01/17 10:35 - Constitutional Appears: Well, Non-toxic, No Acute Distress - Head Exam Head Exam: ATRAUMATIC, NORMAL INSPECTION, NORMOCEPHALIC - Eye Exam Eye Exam: Normal appearance Pupil Exam: NORMAL ACCOMODATION - ENT Exam ENT Exam: Mucous Membranes Moist - Neck Exam Neck Exam: Full ROM, Normal Inspection - Respiratory Exam Respiratory Exam: Clear to Ausculation Bilateral, NORMAL BREATHING PATTERN - Cardiovascular Exam Cardiovascular Exam: REGULAR RHYTHM, RRR, +S1, +S2. absent: JVD - GI/Abdominal Exam GI & Abdominal Exam: Soft, Normal Bowel Sounds - Extremities Exam Extremities Exam: Pedal Edema - Back Exam Back Exam: Full ROM, NORMAL INSPECTION. absent: CVA tenderness (L), CVA tenderness (R) - Neurological Exam Neurological Exam: Alert, Awake, Oriented x3 - Psychiatric Exam Psychiatric exam: Normal Affect, Normal Mood - Skin Skin Exam: Dry, Intact, Normal Color, Warm Assessment and Plan - Assessment and Plan (Free Text) Assessment: 76 y.o female 1 day s/p left DVT thrombectomy and stent placement secondary to IVC and iliofemoral DVT Plan: 1. Venous Thromboembolism Extensive DVT on the left with extension to IVC CTA showed no PE 1 day s/p left DVT thrombectomy of IVC, left iliac vein, SFV, popliteal vein, ICU MANAGER left common iliac vein, intravascular stent placement left common iliac vein Discussed with Dr. North who recommends Heparin Drip for 24 hours post procedure than to start anticoagulation for 6 months. Will discuss with patient anticoagulation options since patient is Jehovah witness IVC filter is not necessary at this time Continue monitoring in telemetry 2 Abdominal pain most likely secondary to extensive VTE extending up to IVC and iliac veins CT abdomen showed no diverticulitis, but extensive artherosclerotic disease US LE showed extensive DVT extending to left iliofemoral and IVC S/P thrombectomy/ thrombolysis with stent placement to left common iliac vein Will stop heparin and start plavix today 3. Hypothyroidism Uncontrolled TSH 4.9 increased dose to 100 mcg 4.Asthma , mild intermittent Controlled c/w Duonebs , O2 via [place] 5. Leukocytosis Most likely reactive and hemo concentration 6. Poor appetite denies depression nutrition eval 7. Arthritis On enbrel for many years PT eval CXR 05/28 : negative 8. DVT prophylaxis lovenox therapeutic SCD Patient is DNR/DNI and has advanced directives that states no one can overturn her decisions She is Jehovah witness <Jovanna Ramirez - Last Filed: 06/01/17 17:11> Objective - Vital Signs/Intake and Output Vital Signs (last 24 hours): Temp Pulse Resp BP Pulse Ox 98.2 F 116 H 14 107/69 93 L 06/01/17 16:09 06/01/17 16:09 06/01/17 16:09 06/01/17 16:09 06/01/17 16:09 - Medications Medications: Current Medications Acetaminophen (Tylenol 325mg Tab) 650 mg PO Q6 PRN PRN Reason: Pain, Mild (1-3) Last Admin: 06/01/17 15:12 Dose: 650 mg Acetaminophen (Tylenol 325mg Tab) 650 mg PO Q6 PRN PRN Reason: Fever >100.4 F Albuterol (Ventolin Hfa 90 Mcg/Actuation (8 G)) 2 puff IH Q4H PRN PRN Reason: Shortness of Breath Apixaban (Eliquis) 10 mg PO BID [facility] PRN Reason: Protocol Stop: 06/08/17 17:01 Atorvastatin Calcium (Lipitor) 20 mg PO DAILY [facility] Last Admin: 06/01/17 09:16 Dose: 20 mg Levothyroxine Sodium (Synthroid) 100 mcg PO DAILY@0630 [facility] Last Admin: 06/01/17 06:42 Dose: 100 mcg Montelukast Sodium (Singulair) 10 mg PO DAILY [facility] Last Admin: 06/01/17 09:17 Dose: 10 mg Ondansetron HCl (Zofran Inj) 4 mg IVP Q6 PRN PRN Reason: Nausea/Vomiting Pantoprazole Sodium (Protonix Ec Tab) 40 mg PO DAILY [facility] Last Admin: 06/01/17 09:17 Dose: 40 mg Fluticasone/Salmeterol (Advair Diskus 100/50) 1 puff IH Q12 [facility] Last Admin: 06/01/17 09:16 Dose: 1 puff - Labs Labs: 06/01/17 05:05 06/01/17 05:05 PT 13.9 Seconds (9.8-13.1) H 06/01/17 10:35 INR 1.3 (0.9-1.2) H 06/01/17 10:35 APTT 98.9 Seconds (25.6-37.1) H D 06/01/17 10:35 Attending/Attestation - Attestation I have personally seen and examined this patient.: Yes I have fully participated in the care of the patient.: Yes I have reviewed all pertinent clinical information, including history, physical exam and plan: Yes Notes (Text): Extensive DVT s/p Thrombectomy with stent placement at the common iliac - d/c Heparin drip -start Eliquis 10 mg bid x 7 days then 5 mg bid x 6 month - no need for Plavix as discussed with IR.
--- NOTE | 2017-06-01 15:48 | CP.PCM.PN ---
Subjective - Date & Time of Evaluation Date of Evaluation: 06/01/17 Time of Evaluation: 12:05 - Subjective Subjective: No complaints s/p catheter directed thrombolysis of LLE Objective - Vital Signs/Intake and Output Vital Signs (last 24 hours): Temp Pulse Resp BP Pulse Ox 98.8 F 117 H 20 99/64 L 96 06/01/17 12:00 06/01/17 12:00 06/01/17 12:00 06/01/17 12:00 06/01/17 12:00 - Medications Medications: Current Medications Acetaminophen (Tylenol 325mg Tab) 650 mg PO Q6 PRN PRN Reason: Pain, Mild (1-3) Last Admin: 06/01/17 15:12 Dose: 650 mg Acetaminophen (Tylenol 325mg Tab) 650 mg PO Q6 PRN PRN Reason: Fever >100.4 F Albuterol (Ventolin Hfa 90 Mcg/Actuation (8 G)) 2 puff IH Q4H PRN PRN Reason: Shortness of Breath Atorvastatin Calcium (Lipitor) 20 mg PO DAILY [facility] Last Admin: 06/01/17 09:16 Dose: 20 mg Heparin Sodium/Dextrose (Heparin 25,000 Units/250ml In D5w) 25,000 units in 250 mls @ 14 mls/hr IV .[id number] [facility] PRN Reason: Protocol Last Admin: 06/01/17 00:02 Dose: 14 mls/hr Heparin Sodium/Dextrose (Heparin 25,000 Units/250ml In D5w) 25,000 units in 250 mls @ 11 mls/hr IV .[id number] [facility] PRN Reason: Protocol Levothyroxine Sodium (Synthroid) 100 mcg PO DAILY@0630 [facility] Last Admin: 06/01/17 06:42 Dose: 100 mcg Montelukast Sodium (Singulair) 10 mg PO DAILY [facility] Last Admin: 06/01/17 09:17 Dose: 10 mg Ondansetron HCl (Zofran Inj) 4 mg IVP Q6 PRN PRN Reason: Nausea/Vomiting Pantoprazole Sodium (Protonix Ec Tab) 40 mg PO DAILY [facility] Last Admin: 06/01/17 09:17 Dose: 40 mg Fluticasone/Salmeterol (Advair Diskus 100/50) 1 puff IH Q12 [facility] Last Admin: 06/01/17 09:16 Dose: 1 puff - Labs Labs: 06/01/17 05:05 06/01/17 05:05 PT 13.9 Seconds (9.8-13.1) H 06/01/17 10:35 INR 1.3 (0.9-1.2) H 06/01/17 10:35 APTT 98.9 Seconds (25.6-37.1) H D 06/01/17 10:35 - Head Exam Head Exam: ATRAUMATIC - Eye Exam Eye Exam: Normal appearance - ENT Exam ENT Exam: Mucous Membranes Dry - Respiratory Exam Respiratory Exam: NORMAL BREATHING PATTERN - Cardiovascular Exam Cardiovascular Exam: +S1, +S2 - GI/Abdominal Exam GI & Abdominal Exam: Normal Bowel Sounds Assessment and Plan (1) DVT (deep venous thrombosis) Assessment & Plan: provoked from immobility s/p catheter directed thrombolysis therapeutic anticoagulation Status: Acute (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
[2017-06-02 00:48] VITALS: RESP 18
[2017-06-02 06:18] LABS: BLOOD UREA NITROGEN 10 mg/dl (7-17); CALCIUM 8.5 mg/dL (8.4-10.2); GFR AFRICAN-AMERICAN > 60; GFR NON-AFRICAN AMERICAN > 60
[2017-06-02 06:20] LABS: HEMOGLOBIN 8.9 g/dL (12.0-16.0); MEAN CELL VOLUME 86.6 fl (81.0-99.0); MEAN CORPUSCULAR HGB CONC 32.3 g/dL (33.0-37.0); RBC 3.18 Mil/uL (3.80-5.20); RED CELL DISTRIBUTION WIDTH 16.5 % (11.5-14.5); WHITE BLOOD COUNT 11.1 K/uL (4.8-10.8)
[2017-06-02] MEDS ORDERED: Potassium Chloride 20 mEq ER Tab PO ONE (08:02)
[2017-06-02 08:08] VITALS: O2SAT 94
[2017-06-02] MEDS: Fluticasone-Salmeterol 100-50mcg Diskus IH SCH (08:38)
[2017-06-02] MEDS: Pantoprazole 40 mg EC Tab PO SCH (08:38)
[2017-06-02] MEDS: Levothyroxine 100 MCG TAB PO SCH (08:39)
--- NOTE | 2017-06-02 10:05 | CP.PCM.DIS ---
<Darwin Landon - Last Filed: 06/02/17 16:22> Provider - Provider Date of Admission: 05/27/17 14:51 Attending physician: Clarence Valerio MD Consults: Dr. Gayle - Hematology Dr. Chamberlain -GI Dr. North - IR Time Spent in preparation of Discharge (in minutes): 30 Diagnosis - Discharge Diagnosis (1) DVT (deep venous thrombosis) Status: Acute Comment: Patient s/p DVT thrombectomy and stent placement; will be on Eliquis 10 mg BID x 7 days then 5mg BID x 6 months (2) Hypothyroidism Status: Acute Comment: continue with Levothyroxine (3) Asthma Status: Chronic Comment: Controlled (4) Leukocytosis Status: Acute Comment: Most likely reactive and hemo concentration (5) Poor appetite Status: Acute (6) Arthritis Status: Chronic Hospital Course - Lab Results Lab Results: Most Recent Lab Values WBC 11.1 K/uL (4.8-10.8) H 06/02/17 05:01 RBC 3.18 Mil/uL (3.80-5.20) L 06/02/17 05:01 Hgb 8.9 g/dL (12.0-16.0) L 06/02/17 05:01 Hct 27.5 % (34.0-47.0) L 06/02/17 05:01 MCV 86.6 fl (81.0-99.0) 06/02/17 05:01 MCH 28.0 pg (27.0-31.0) 06/02/17 05:01 MCHC 32.3 g/dL (33.0-37.0) L 06/02/17 05:01 RDW 16.5 % (11.5-14.5) H 06/02/17 05:01 Plt Count 282 K/uL (130-400) 06/02/17 05:01 MPV 8.5 fl (7.2-11.7) 05/28/17 05:25 Neut % (Auto) 77.5 % (50.0-75.0) H 05/28/17 05:25 Lymph % (Auto) 11.8 % (20.0-40.0) L 05/28/17 05:25 Kidder % (Auto) 10.0 % (0.0-10.0) 05/28/17 05:25 Eos % (Auto) 0.2 % (0.0-4.0) 05/28/17 05:25 Baso % (Auto) 0.5 % (0.0-2.0) 05/28/17 05:25 Neut # 10.2 K/uL (1.8-7.0) H 05/28/17 05:25 Lymph # 1.6 K/uL (1.0-4.3) 05/28/17 05:25 Kidder # 1.3 K/uL (0.0-0.8) H 05/28/17 05:25 Eos # 0.0 K/uL (0.0-0.7) 05/28/17 05:25 Baso # 0.1 K/uL (0.0-0.2) 05/28/17 05:25 PT 13.9 Seconds (9.8-13.1) H 06/01/17 10:35 INR 1.3 (0.9-1.2) H 06/01/17 10:35 APTT 98.9 Seconds (25.6-37.1) H D 06/01/17 10:35 Sodium 141 mmol/l (132-148) 06/02/17 05:01 Potassium 3.0 MMOL/L (3.6-5.0) L 06/02/17 05:01 Chloride 102 mmol/L (98-107) 06/02/17 05:01 Carbon Dioxide 30 mmol/L (22-30) 06/02/17 05:01 Anion Gap 12 (10-20) 06/02/17 05:01 BUN 10 mg/dl (7-17) 06/02/17 05:01 Creatinine 0.5 mg/dl (0.7-1.2) L 06/02/17 05:01 Est GFR ( Amer) > 60 06/02/17 05:01 Est GFR (Non-Af Amer) > 60 06/02/17 05:01 POC Glucose (mg/dL) 112 mg/dL (65-110) H 06/02/17 05:37 Random Glucose 122 mg/dL (65-105) H 06/02/17 05:01 Calcium 8.5 mg/dL (8.4-10.2) 06/02/17 05:01 Total Bilirubin 1.5 mg/dl (0.2-1.3) H 05/26/17 05:45 AST 25 U/L (14-36) 05/26/17 05:45 ALT 41 U/L (9-52) 05/26/17 05:45 Alkaline Phosphatase 74 U/L (38-126) 05/26/17 05:45 Total Protein 7.9 G/DL (6.3-8.2) 05/26/17 05:45 Albumin 3.8 g/dL (3.5-5.0) 05/26/17 05:45 Globulin 4.0 gm/dL (2.2-3.9) H 05/26/17 05:45 Albumin/Globulin Ratio 0.9 (1.0-2.1) L 05/26/17 05:45 Triglycerides 94 mg/DL (0-149) 05/26/17 05:45 Cholesterol 193 mg/dL (0-199) 05/26/17 05:45 LDL Cholesterol Direct 109 mg/dL (0-129) 05/26/17 05:45 HDL Cholesterol 47 MG/DL (30-70) 05/26/17 05:45 Lipase 47 U/L (23-300) 05/25/17 08:07 TSH 3rd Generation 4.98 mIU/ML (0.46-4.68) H 05/25/17 08:07 Urine Color Sunita (YELLOW) 05/26/17 09:30 Urine Clarity Turbid (Clear) 05/26/17 09:30 Urine pH 5.0 (5.0-8.0) 05/26/17 09:30 Ur Specific Winder 1.050 (1.003-1.030) H 05/26/17 09:30 Urine Protein 30 mg/dL (NEGATIVE) 05/26/17 09:30 Urine Glucose (UA) Neg mg/dL (Normal) 05/26/17 09:30 Urine Ketones Trace mg/dL (NEGATIVE) 05/26/17 09:30 Urine Blood Negative (NEGATIVE) 05/26/17 09:30 Urine Nitrate Negative (NEGATIVE) 05/26/17 09:30 Urine Bilirubin Negative (NEGATIVE) 05/26/17 09:30 Urine Urobilinogen 0.2-1.0 mg/dL (0.2-1.0) 05/26/17 09:30 Ur Leukocyte Esterase Large Adriane/uL (Negative) 05/26/17 09:30 Urine RBC (Auto) 2 /hpf (0-3) 05/26/17 09:30 Urine Microscopic WBC 3 /hpf (0-5) 05/26/17 09:30 Ur Squamous Epith Cells 1 /hpf (0-5) 05/26/17 09:30 Amorphous Sediment Rare /ul (<OCC) H 05/26/17 09:30 - Hospital Course Hospital Course: 76y.o female with Hypothyroidism, Asthma, second hand smoker 1 month s/p right knee surgery was admitted for severe abdominal pain. During hospital stay, patient was found to have extensive left LE DVT, most likely due to immobility s /p right knee surgery, in which she underwent DVT thrombectomy and stent placement. CTA (05/28/17) showed no PE . Patient received heparin drip for 24 hour s/p surgery and received day 1 of Eliquis 10mg BID. Patient will be on Eliquis 10 mg BID x 7 days then 5mg BID x 6 months. Patient's abdominal pain was most likely secondary to extensive VTE extending up to IVC and iliac veins vs dehydration from poor PO intake. 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 Status post cholecystectomy. Sigmoid diverticulosis without evidence of diverticulitis. No abnormal small bowel loops identified. Dr. Chamberlain recommended Atorvastatin, ASA, and Pletal in which Pletal and antiplatelet was discontinued since patient was started on anticoagulation due to risk of bleeding and patient is Jehovah witness. Patient will be closely monitored including glucose control, PT, and hemoglobin levels and be discharged today to TCU for close monitoring Discharge Exam - Head Exam Head Exam: ATRAUMATIC, NORMAL INSPECTION, NORMOCEPHALIC - Eye Exam Eye Exam: EOMI, Normal appearance, PERRL Pupil Exam: NORMAL ACCOMODATION - ENT Exam ENT Exam: Mucous Membranes Moist - Neck Exam Neck exam: Normal Inspection - Respiratory Exam Respiratory Exam: NORMAL BREATHING PATTERN, UNREMARKABLE. absent: Prolonged Expiratory Phase, Rales, Rhonchi, Respiratory Distress, Stridor - Cardiovascular Exam Cardiovascular Exam: REGULAR RHYTHM, RRR, +S1, +S2. absent: JVD - GI/Abdominal Exam GI & Abdominal Exam: Normal Bowel Sounds, Unremarkable. absent: Mass, Rebound, Rigid, Tenderness - Extremities Exam Extremities exam: tenderness - Back Exam Back exam: FULL ROM. absent: CVA tenderness (L), CVA tenderness (R) - Neurological Exam Neurological exam: Alert - Psychiatric Exam Psychiatric exam: Normal Affect, Normal Mood - Skin Skin Exam: Dry, Intact, Normal Color, Warm - Additional Findings Additional findings: Surgical site is clean with dressing clean, dry and intact without strikethrough. Surgical site with no hematoma noted, no fluctuatance or abscess noted; no clinical signs of infection to surgical site; temperature was wnl, swelling noted to the entire L LE as well as mild tenderness to the LE. Discharge Plan - Discharge Medications Prescriptions: Aspirin 81 mg PO DAILY #30 tab.chew Atorvastatin [Lipitor] 20 mg PO DAILY #30 tab Levothyroxine [Synthroid] 100 mcg PO DAILY #30 tab - Follow Up Plan Condition: FAIR Disposition: TRANSF TO SNF Instructions: Asthma (DC), Pulmonary Embolism (DC), Pulmonary Embolism (GEN), Deep Venous Thrombosis (DC), Deep Venous Thrombosis (GEN) Additional Instructions: d/c to TCU continue Eliquis 10mg BID x 6 days then decrease to Elqiuis 5mg BID x 6 months. <Jovanna Ramirez - Last Filed: 06/02/17 17:03> Provider - Provider Date of Admission: 05/27/17 14:51 Attending physician: Clarence Valerio MD Hospital Course - Lab Results Lab Results: Most Recent Lab Values WBC 11.1 K/uL (4.8-10.8) H 06/02/17 05:01 RBC 3.18 Mil/uL (3.80-5.20) L 06/02/17 05:01 Hgb 8.9 g/dL (12.0-16.0) L 06/02/17 05:01 Hct 27.5 % (34.0-47.0) L 06/02/17 05:01 MCV 86.6 fl (81.0-99.0) 06/02/17 05:01 MCH 28.0 pg (27.0-31.0) 06/02/17 05:01 MCHC 32.3 g/dL (33.0-37.0) L 06/02/17 05:01 RDW 16.5 % (11.5-14.5) H 06/02/17 05:01 Plt Count 282 K/uL (130-400) 06/02/17 05:01 MPV 8.5 fl (7.2-11.7) 05/28/17 05:25 Neut % (Auto) 77.5 % (50.0-75.0) H 05/28/17 05:25 Lymph % (Auto) 11.8 % (20.0-40.0) L 05/28/17 05:25 Kidder % (Auto) 10.0 % (0.0-10.0) 05/28/17 05:25 Eos % (Auto) 0.2 % (0.0-4.0) 05/28/17 05:25 Baso % (Auto) 0.5 % (0.0-2.0) 05/28/17 05:25 Neut # 10.2 K/uL (1.8-7.0) H 05/28/17 05:25 Lymph # 1.6 K/uL (1.0-4.3) 05/28/17 05:25 Kidder # 1.3 K/uL (0.0-0.8) H 05/28/17 05:25 Eos # 0.0 K/uL (0.0-0.7) 05/28/17 05:25 Baso # 0.1 K/uL (0.0-0.2) 05/28/17 05:25 PT 13.9 Seconds (9.8-13.1) H 06/01/17 10:35 INR 1.3 (0.9-1.2) H 06/01/17 10:35 APTT 98.9 Seconds (25.6-37.1) H D 06/01/17 10:35 Sodium 141 mmol/l (132-148) 06/02/17 05:01 Potassium 3.0 MMOL/L (3.6-5.0) L 06/02/17 05:01 Chloride 102 mmol/L (98-107) 06/02/17 05:01 Carbon Dioxide 30 mmol/L (22-30) 06/02/17 05:01 Anion Gap 12 (10-20) 06/02/17 05:01 BUN 10 mg/dl (7-17) 06/02/17 05:01 Creatinine 0.5 mg/dl (0.7-1.2) L 06/02/17 05:01 Est GFR ( Amer) > 60 06/02/17 05:01 Est GFR (Non-Af Amer) > 60 06/02/17 05:01 POC Glucose (mg/dL) 151 mg/dL (65-110) H 06/02/17 10:58 Random Glucose 122 mg/dL (65-105) H 06/02/17 05:01 Calcium 8.5 mg/dL (8.4-10.2) 06/02/17 05:01 Total Bilirubin 1.5 mg/dl (0.2-1.3) H 05/26/17 05:45 AST 25 U/L (14-36) 05/26/17 05:45 ALT 41 U/L (9-52) 05/26/17 05:45 Alkaline Phosphatase 74 U/L (38-126) 05/26/17 05:45 Total Protein 7.9 G/DL (6.3-8.2) 05/26/17 05:45 Albumin 3.8 g/dL (3.5-5.0) 05/26/17 05:45 Globulin 4.0 gm/dL (2.2-3.9) H 05/26/17 05:45 Albumin/Globulin Ratio 0.9 (1.0-2.1) L 05/26/17 05:45 Triglycerides 94 mg/DL (0-149) 05/26/17 05:45 Cholesterol 193 mg/dL (0-199) 05/26/17 05:45 LDL Cholesterol Direct 109 mg/dL (0-129) 05/26/17 05:45 HDL Cholesterol 47 MG/DL (30-70) 05/26/17 05:45 Lipase 47 U/L (23-300) 05/25/17 08:07 TSH 3rd Generation 4.98 mIU/ML (0.46-4.68) H 05/25/17 08:07 Urine Color Sunita (YELLOW) 05/26/17 09:30 Urine Clarity Turbid (Clear) 05/26/17 09:30 Urine pH 5.0 (5.0-8.0) 05/26/17 09:30 Ur Specific Winder 1.050 (1.003-1.030) H 05/26/17 09:30 Urine Protein 30 mg/dL (NEGATIVE) 05/26/17 09:30 Urine Glucose (UA) Neg mg/dL (Normal) 05/26/17 09:30 Urine Ketones Trace mg/dL (NEGATIVE) 05/26/17 09:30 Urine Blood Negative (NEGATIVE) 05/26/17 09:30 Urine Nitrate Negative (NEGATIVE) 05/26/17 09:30 Urine Bilirubin Negative (NEGATIVE) 05/26/17 09:30 Urine Urobilinogen 0.2-1.0 mg/dL (0.2-1.0) 05/26/17 09:30 Ur Leukocyte Esterase Large Adriane/uL (Negative) 05/26/17 09:30 Urine RBC (Auto) 2 /hpf (0-3) 05/26/17 09:30 Urine Microscopic WBC 3 /hpf (0-5) 05/26/17 09:30 Ur Squamous Epith Cells 1 /hpf (0-5) 05/26/17 09:30 Amorphous Sediment Rare /ul (<OCC) H 05/26/17 09:30 Attending/Attestation - Attestation I have personally seen and examined this patient.: Yes I have fully participated in the care of the patient.: Yes I have reviewed all pertinent clinical information, including history, physical exam and plan: Yes
[2017-06-02 12:01] VITALS: BP 106/69; PULSE 108; TEMP 98.4
== END 2017-06-02 15:19 | DRG 982 ==
LOC: H.ER 07:35 → H.ERHOLD 12:40 → H.MEDSURG1 16:10 → OBSVTOIN 05-27 14:51 → H.TEL 05-28 17:25
PROVIDERS: ADMIT Hospitalist; ATTEND Hospitalist
PROC: 06CD3ZZ Extirpation of Matter from Left Common Iliac Vein, Percutaneous Approach (ICD-10-PCS; principal; 2017-05-31)
PROC: 06CN3ZZ Extirpation of Matter from Left Femoral Vein, Percutaneous Approach (ICD-10-PCS; 2017-05-31)
DX: K55.069 Acute infarction of intestine, part and extent unspecified (principal); I82.409 Acute embolism and thrombosis of unspecified deep veins of unspecified lower extremity; K55.1 Chronic vascular disorders of intestine; D72.828 Other elevated white blood cell count; K57.30 Diverticulosis of large intestine without perforation or abscess without bleeding; M06.9 Rheumatoid arthritis, unspecified; E03.9 Hypothyroidism, unspecified; J45.909 Unspecified asthma, uncomplicated; M19.90 Unspecified osteoarthritis, unspecified site; Z66 Do not resuscitate; Z79.01 Long term (current) use of anticoagulants; Z79.82 Long term (current) use of aspirin

== ENCOUNTER 2017-06-02 13:52 | Inpatient (IN) | payer MEDICARE ==
[2017-06-02 16:24] VITALS: BMI 26.0
[2017-06-02] MEDS ORDERED: Albuterol HFA 90 mcg/actuation (8 g) IH PRN (16:58)
[2017-06-02 17:05] VITALS: RESP 20
[2017-06-02] MEDS: Fluticasone-Salmeterol 100-50mcg Diskus IH SCH (17:33)
[2017-06-03] MEDS: Fluticasone-Salmeterol 100-50mcg Diskus IH SCH ×2 (05:47→16:41)
[2017-06-03] MEDS: Levothyroxine 100 MCG TAB PO SCH (05:47)
[2017-06-03 07:02] LABS: HEMOGLOBIN 8.8 g/dL (12.0-16.0); MEAN CELL VOLUME 87.8 fl (81.0-99.0); MEAN CORPUSCULAR HEMOGLOBIN 27.5 pg (27.0-31.0); MEAN CORPUSCULAR HGB CONC 31.3 g/dL (33.0-37.0); RBC 3.22 Mil/uL (3.80-5.20); RED CELL DISTRIBUTION WIDTH 16.5 % (11.5-14.5); WHITE BLOOD COUNT 11.3 K/uL (4.8-10.8)
[2017-06-03 07:11] LABS: BLOOD UREA NITROGEN 11 mg/dl (7-17); CALCIUM 8.9 mg/dL (8.4-10.2); GFR AFRICAN-AMERICAN > 60; GFR NON-AFRICAN AMERICAN > 60
[2017-06-03] MEDS: Pantoprazole 40 mg EC Tab PO SCH (08:52)
[2017-06-03] MEDS: Multivitamin With Minerals Tab PO SCH (08:53)
--- NOTE | 2017-06-03 16:18 | CP.PCM.HP ---
History of Present Illness - History of Present Illness History of Present Illness: This is a 76 year old female with Hypothyroidism, Asthma, second hand smoker 1 month s/p right knee surgery was admitted for severe abdominal pain. During hospital stay, patient was found to have extensive left LE DVT, most likely due to immobility s/p right knee surgery, in which she underwent DVT thrombectomy and stent placement. CTA (05/28/17) showed no PE . Patient received heparin drip for 24 hour s/p surgery and received day 1 of Eliquis 10mg BID. Patient will be on Eliquis 10 mg BID x 7 days then 5mg BID x 6 months. Patient's abdominal pain was most likely secondary to extensive VTE extending up to IVC and iliac veins vs dehydration from poor PO intake. 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 Status post cholecystectomy. Sigmoid diverticulosis without evidence of diverticulitis. No abnormal small bowel loops identified. Dr. Chamberlain recommended Atorvastatin, ASA, and Pletal in which Pletal and antiplatelet was discontinued since patient was started on anticoagulation due to risk of bleeding and patient is Jehovah witness. Patient will be closely monitored including glucose control, PT, and hemoglobin levels. She was discharged from the regular floor and was admitted to TCU 06/03/2017. Present on Admission - Present on Admission Any Indicators Present on Admission: Yes History of DVT/PE: Yes Review of Systems - Review of Systems Review of Systems: A 12 point review of systems was conducted and was found to be negative other than what was documented in the HPI. Past Patient History - Infectious Disease Hx of Infectious Diseases: None - Tetanus Immunizations Tetanus Immunization: Unknown - Past Medical History & Family History Past Medical History?: Yes - Past Social History Smoking Status: Never Smoked - PULMONARY Hx Chronic Obstructive Pulmonary Disease (COPD): (asthma) - ENDOCRINE/METABOLIC Hx Hypothyroidism: Yes - HEMATOLOGICAL/ONCOLOGICAL Hx Anemia: Yes - MUSCULOSKELETAL/RHEUMATOLOGICAL Hx Falls: Yes Hx Rheumatoid Arthritis: Yes - GASTROINTESTINAL Hx Diverticulitis: Yes - PSYCHIATRIC Hx Substance Use: No - SURGICAL HISTORY Hx Cholecystectomy: Yes Hx Hysterectomy: Yes Hx Orthopedic Surgery: Yes (Right knee) Other/Comment: Fractured right ankle. Sinus. 05/31 thrombectomy - ANESTHESIA Hx Anesthesia: Yes Hx Anesthesia Reactions: No Hx Malignant Hyperthermia: No Meds Allergies/Adverse Reactions: Allergies Allergy/AdvReac Type Severity Reaction Status Date / Time No Known Allergies Allergy Verified 06/02/17 16:16 Physical Exam - Additional Findings Additional findings: Physical exam: Constitutional- cooperative, awake, alert Head- NCAT, PERRL Eye- PERRL, EOMI ENT- normal exam, MMM. Neck- normal inspection, supple, no JVD Respiratory- CTAB, no wheezes rales rhonchi Cardiovascular- RRR, +S1, +S2 no MRG GI/Abdominal- normal bowel sounds, soft, no mass, no hsm Skin- warm, dry Extremities Exam- + 2 pitting edema to left lower extremity, nontender, nonerythematous. Other 3 extremities- no clubbing, cyanosis, or edema. normal capillary refill, normal inspection Neurological Exam- alert, awake, oriented Psych- normal mood, normal affect Results - Vital Signs Recent Vital Signs: Last Vital Signs Temp 98.8 F 06/03/17 08:07 Pulse 100 H 06/03/17 08:07 Resp 20 06/03/17 08:07 BP 120/67 06/03/17 08:07 Pulse Ox 96 06/03/17 08:07 - Labs Result Diagrams: 06/03/17 05:30 06/03/17 05:30 Labs: Laboratory Results - last 24 hr 06/03/17 06/03/17 05:30 05:30 WBC 11.3 H RBC 3.22 L Hgb 8.8 L Hct 28.2 L MCV 87.8 MCH 27.5 MCHC 31.3 L RDW 16.5 H Plt Count 306 Sodium 141 Potassium 3.5 L Chloride 104 Carbon Dioxide 30 Anion Gap 11 BUN 11 Creatinine 0.5 L Est GFR ( Amer) > 60 Est GFR (Non-Af Amer) > 60 Random Glucose 111 H Calcium 8.9 Assessment & Plan - Assessment and Plan (Free Text) Plan: This is a 76 year old female with Hypothyroidism, Asthma, second hand smoker 1 month s/p right knee surgery was admitted for severe abdominal pain. During hospital stay, patient was found to have extensive left LE DVT, most likely due to immobility s/p right knee surgery, in which she underwent DVT thrombectomy and stent placement. CTA (05/28/17) showed no PE . Patient received heparin drip for 24 hour s/p surgery and received day 1 of Eliquis 10mg BID. Patient will be on Eliquis 10 mg BID x 7 days then 5mg BID x 6 months. Patient's abdominal pain was most likely secondary to extensive VTE extending up to IVC and iliac veins vs dehydration from poor PO intake. 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 Status post cholecystectomy. Sigmoid diverticulosis without evidence of diverticulitis. No abnormal small bowel loops identified. Dr. Chamberlain recommended Atorvastatin, ASA, and Pletal in which Pletal and antiplatelet was discontinued since patient was started on anticoagulation due to risk of bleeding and patient is Jehovah witness. Patient will be closely monitored including glucose control, PT, and hemoglobin levels. She was discharged from the regular floor and was admitted to TCU 06/03/2017. (1) DVT (deep venous thrombosis) of left lower extremity resulting in weakness of that extremity Status: Acute Comment: Patient s/p DVT thrombectomy and stent placement; will be on Eliquis 10 mg BID x 7 days then 5mg BID x 6 months Today is day 3 of 7 of Eliquis 10 mg po BID PT/OT (2) Hypothyroidism Status: Acute Comment: continue with Levothyroxine TSH 4.9 so dose of Levothyroxine increased to 100 mcg (3) Asthma Status: Chronic Comment: Controlled (4) Leukocytosis Status: Acute Comment: Most likely reactive and hemo concentration (5) Poor appetite Status: Acute (6) Arthritis Status: Chronic (7) Anemia Chronic Hg 8.8 Stable
[2017-06-04] MEDS: Fluticasone-Salmeterol 100-50mcg Diskus IH SCH ×3 (05:21→21:59)
[2017-06-04] MEDS: Levothyroxine 100 MCG TAB PO SCH (06:29)
[2017-06-04] MEDS: Pantoprazole 40 mg EC Tab PO SCH (08:37)
[2017-06-04] MEDS: Multivitamin With Minerals Tab PO SCH (08:37)
[2017-06-05] MEDS: Levothyroxine 100 MCG TAB PO SCH (05:36)
[2017-06-05] MEDS: Pantoprazole 40 mg EC Tab PO SCH (09:42)
[2017-06-05] MEDS: Fluticasone-Salmeterol 100-50mcg Diskus IH SCH ×2 (09:42→21:17)
[2017-06-05] MEDS: Multivitamin With Minerals Tab PO SCH (09:42)
[2017-06-06] MEDS: Levothyroxine 100 MCG TAB PO SCH (06:16)
[2017-06-06] MEDS: Fluticasone-Salmeterol 100-50mcg Diskus IH SCH ×2 (08:48→21:07)
[2017-06-06] MEDS: Pantoprazole 40 mg EC Tab PO SCH (08:48)
[2017-06-06] MEDS: Multivitamin With Minerals Tab PO SCH (08:48)
[2017-06-06 15:26] LABS: BASO # 0.1 K/uL (0.0-0.2); BASO % 0.5 % (0.0-2.0); EOS # 0.1 K/uL (0.0-0.7); EOS % 1.1 % (0.0-4.0); HEMOGLOBIN 9.1 g/dL (12.0-16.0); LYMPH # 1.5 K/uL (1.0-4.3); LYMPH % 14.3 % (20.0-40.0); MEAN CORPUSCULAR HEMOGLOBIN 28.7 pg (27.0-31.0); MEAN CORPUSCULAR HGB CONC 32.3 g/dL (33.0-37.0); MEAN PLATELET VOLUME 7.3 fl (7.2-11.7); MONO # 0.8 K/uL (0.0-0.8); MONO % 7.7 % (0.0-10.0); NEUT # 8.2 K/uL (1.8-7.0); NEUT % 76.4 % (50.0-75.0); NRBC % 0.3 % (0.0-0.0); RBC 3.16 Mil/uL (3.80-5.20); RED CELL DISTRIBUTION WIDTH 17.3 % (11.5-14.5); WHITE BLOOD COUNT 10.8 K/uL (4.8-10.8)
[2017-06-06 15:34] LABS: BLOOD UREA NITROGEN 12 mg/dl (7-17); CALCIUM 9.2 mg/dL (8.4-10.2); GFR AFRICAN-AMERICAN > 60; GFR NON-AFRICAN AMERICAN > 60
--- NOTE | 2017-06-06 18:12 | CP.PCM.PN ---
Subjective - Date & Time of Evaluation Date of Evaluation: 06/06/17 Time of Evaluation: 16:00 - Subjective Subjective: Pt seen and examined. Swelling on left leg subsiding Objective - Vital Signs/Intake and Output Vital Signs (last 24 hours): Temp Pulse Resp BP Pulse Ox 98.2 F 108 H 20 102/55 L 99 06/06/17 16:22 06/06/17 16:22 06/06/17 16:22 06/06/17 16:22 06/06/17 16:22 - Medications Medications: Current Medications Acetaminophen (Tylenol 325mg Tab) 650 mg PO Q6 PRN PRN Reason: Fever >100.4 F Acetaminophen (Tylenol 325mg Tab) 650 mg PO Q6 PRN PRN Reason: Pain, Mild (1-3) Last Admin: 06/02/17 18:51 Dose: 650 mg Albuterol (Ventolin Hfa 90 Mcg/Actuation (8 G)) 2 puff IH Q4H PRN PRN Reason: Shortness of Breath Apixaban (Eliquis) 10 mg PO BID@0900,2100 [facility] PRN Reason: Protocol Stop: 06/07/17 09:01 Last Admin: 06/06/17 08:48 Dose: 10 mg Aspirin (Aspirin Chewable) 81 mg PO DAILY [facility] Last Admin: 06/06/17 08:49 Dose: 81 mg Atorvastatin Calcium (Lipitor) 20 mg PO DAILY@2100 [facility] Last Admin: 06/05/17 21:18 Dose: 20 mg Levothyroxine Sodium (Synthroid) 100 mcg PO DAILY@0630 [facility] Last Admin: 06/06/17 06:16 Dose: 100 mcg Montelukast Sodium (Singulair) 10 mg PO DAILY@2100 [facility] Last Admin: 06/05/17 21:18 Dose: 10 mg Multivitamins/Minerals (Therapeutic-M Tab) 1 tab PO DAILY [facility] Last Admin: 06/06/17 08:48 Dose: 1 tab Pantoprazole Sodium (Protonix Ec Tab) 40 mg PO DAILY [facility] Last Admin: 06/06/17 08:48 Dose: 40 mg Fluticasone/Salmeterol (Advair Diskus 100/50) 1 puff IH Q12 [facility] Last Admin: 06/06/17 08:48 Dose: 1 puff - Labs Labs: 06/06/17 11:43 06/06/17 11:43 - Constitutional Appears: No Acute Distress - Head Exam Head Exam: ATRAUMATIC - Eye Exam Eye Exam: absent: Scleral icterus - ENT Exam ENT Exam: Mucous Membranes Moist - Neck Exam Neck Exam: absent: Meningismus - Respiratory Exam Respiratory Exam: absent: Rhonchi, Wheezes, Respiratory Distress - Cardiovascular Exam Cardiovascular Exam: REGULAR RHYTHM, +S1, +S2 - GI/Abdominal Exam GI & Abdominal Exam: Soft. absent: Tenderness - Rectal Exam Rectal Exam: Deferred - Extremities Exam Extremities Exam: Pedal Edema (left leg swollen but according to patient has been subsiding) - Neurological Exam Neurological Exam: Alert, Oriented x3 - Psychiatric Exam Psychiatric exam: Normal Affect - Skin Skin Exam: Dry, Intact Assessment and Plan - Assessment and Plan (Free Text) Assessment: 76 yo female with history of Hypothyroidism and Asthma and recent right knee arthroscopy/meniscal repair came in because of abdominal pain radiating to the left flank. 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 Extensive DVT of the left leg was also noted when Venous Doppler was ordered for swelling of the left leg. Patient was started on therapeutic Lovenox and direct catheter thrombolysis was done at [facility]. 1. Venous Thromboembolism had DVT thrombectomy of IVC, left iliac vein, SFV, Popliteal Vein and Left Common Ileac Vein. Intravascular stent was also placed on Left Common Iliac Vein. Had Heparin Drip for 24 hours post procedure as per recommendation from Dr North continue Eliquis 10mg PO BID 2. Abdominal pain most likely secondary to extensive VTE had thrombectomy/ thrombolysis with stent placement to left common iliac vein 3. Hypothyroidism uncontrolled TSH 4.98 (05/25/17) continue Levothyroxine 100 mcg daily 4.Asthma , mild intermittent Controlled Duonebs , O2 via NC 5. Leukocytosis Most likely reactive now back to normal 6. Poor appetite denies depression nutrition eval 7. DVT prophylaxis on Eliquis
[2017-06-07] MEDS: Levothyroxine 100 MCG TAB PO SCH (05:56)
[2017-06-07] MEDS: Fluticasone-Salmeterol 100-50mcg Diskus IH SCH ×2 (09:47→21:45)
[2017-06-07] MEDS: Pantoprazole 40 mg EC Tab PO SCH (09:48)
[2017-06-07] MEDS: Multivitamin With Minerals Tab PO SCH (09:48)
[2017-06-08] MEDS: Levothyroxine 100 MCG TAB PO SCH (06:16)
[2017-06-08] MEDS: Pantoprazole 40 mg EC Tab PO SCH (08:41)
[2017-06-08] MEDS: Fluticasone-Salmeterol 100-50mcg Diskus IH SCH ×2 (08:41→21:27)
[2017-06-08] MEDS: Multivitamin With Minerals Tab PO SCH (08:41)
--- NOTE | 2017-06-08 13:14 | CP.PCM.PN ---
Subjective - Date & Time of Evaluation Date of Evaluation: 06/08/17 Time of Evaluation: 13:12 - Subjective Subjective: pt doing well denies any pain, +mild edema R leg no cp sob calf tenderness HD stbale NAD Objective - Vital Signs/Intake and Output Vital Signs (last 24 hours): Temp Pulse Resp BP Pulse Ox 97.8 F 92 H 20 115/69 99 06/08/17 08:09 06/08/17 08:09 06/08/17 08:09 06/08/17 08:09 06/08/17 08:09 Intake and Output: Vitals Reviewed GEN: WDWN, ALERT, COOPERATIVE HEENT: NCAT, PERRL, EOMI HEART: RRR, +S1S2, NO MRG LUNG: CTAB, NO WRR ABD: SOFT, NT, ND, NO HSM, NO MASSES EXT: NORMAL PEDAL PULSES, GOOD CAPILLARY REFILL NEURO: AAOX3, STRENGTH EQUAL BILATERAL UPPER AND LOWER EXTREMITIES SKIN: WARM, DRY PSYCH: NORMAL MOOD, NORMAL AFFECT - Medications Medications: Current Medications Acetaminophen (Tylenol 325mg Tab) 650 mg PO Q6 PRN PRN Reason: Fever >100.4 F Acetaminophen (Tylenol 325mg Tab) 650 mg PO Q6 PRN PRN Reason: Pain, Mild (1-3) Last Admin: 06/07/17 18:34 Dose: 650 mg Albuterol (Ventolin Hfa 90 Mcg/Actuation (8 G)) 2 puff IH Q4H PRN PRN Reason: Shortness of Breath Apixaban (Eliquis) 5 mg PO BID [facility] PRN Reason: Protocol Last Admin: 06/08/17 08:41 Dose: 5 mg Aspirin (Aspirin Chewable) 81 mg PO DAILY [facility] Last Admin: 06/08/17 08:41 Dose: 81 mg Atorvastatin Calcium (Lipitor) 20 mg PO DAILY@2099 [facility] Last Admin: 06/07/17 21:47 Dose: 20 mg Levothyroxine Sodium (Synthroid) 100 mcg PO DAILY@0630 [facility] Last Admin: 06/08/17 06:16 Dose: 100 mcg Montelukast Sodium (Singulair) 10 mg PO DAILY@2100 [facility] Last Admin: 06/07/17 21:47 Dose: 10 mg Multivitamins/Minerals (Therapeutic-M Tab) 1 tab PO DAILY [facility] Last Admin: 06/08/17 08:41 Dose: 1 tab Pantoprazole Sodium (Protonix Ec Tab) 40 mg PO DAILY [facility] Last Admin: 06/08/17 08:41 Dose: 40 mg Fluticasone/Salmeterol (Advair Diskus 100/50) 1 puff IH Q12 [facility] Last Admin: 06/08/17 08:41 Dose: 1 puff - Labs Labs: 06/06/17 11:43 06/06/17 11:43 Assessment and Plan - Assessment and Plan (Free Text) Plan: 76 yo female with history of Hypothyroidism and Asthma and recent right knee arthroscopy/meniscal repair came in because of abdominal pain radiating to the left flank. 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 Extensive DVT of the left leg was also noted when Venous Doppler was ordered for swelling of the left leg. Patient was started on therapeutic Lovenox and direct catheter thrombolysis was done at [facility]. 1. Venous Thromboembolism had DVT thrombectomy of IVC, left iliac vein, SFV, Popliteal Vein and Left Common Ileac Vein. Intravascular stent was also placed on Left Common Iliac Vein. Had Heparin Drip for 24 hours post procedure as per recommendation from Dr North continue Eliquis 10mg PO BID 2. Abdominal pain most likely secondary to extensive VTE had thrombectomy/ thrombolysis with stent placement to left common iliac vein 3. Hypothyroidism uncontrolled TSH 4.98 (05/25/17) continue Levothyroxine 100 mcg daily 4.Asthma , mild intermittent Controlled Duonebs , O2 via NC 5. Leukocytosis Most likely reactive now back to normal 6. Poor appetite denies depression nutrition eval 7. DVT prophylaxis on Eliquis
[2017-06-09] MEDS: Levothyroxine 100 MCG TAB PO SCH (06:14)
[2017-06-09] MEDS: Fluticasone-Salmeterol 100-50mcg Diskus IH SCH ×3 (08:30→21:38)
[2017-06-09] MEDS: Pantoprazole 40 mg EC Tab PO SCH (08:30)
[2017-06-09] MEDS: Multivitamin With Minerals Tab PO SCH (08:31)
[2017-06-10] MEDS: Levothyroxine 100 MCG TAB PO SCH (06:18)
[2017-06-10 09:00] VITALS: BP 125/64; PULSE 87; TEMP 98.1; O2SAT 94
[2017-06-10] MEDS: Pantoprazole 40 mg EC Tab PO SCH (09:28)
[2017-06-10] MEDS: Fluticasone-Salmeterol 100-50mcg Diskus IH SCH (09:28)
[2017-06-10] MEDS: Multivitamin With Minerals Tab PO SCH (09:28)
--- NOTE | 2017-06-10 12:46 | CP.PCM.DIS ---
Provider - Provider Date of Admission: 06/02/17 16:24 Attending physician: Clarence Valerio MD Time Spent in preparation of Discharge (in minutes): 30 Diagnosis - Discharge Diagnosis (1) DVT (deep venous thrombosis) Status: Acute Hospital Course - Lab Results Lab Results: Most Recent Lab Values WBC 10.8 K/uL (4.8-10.8) 06/06/17 11:43 RBC 3.16 Mil/uL (3.80-5.20) L 06/06/17 11:43 Hgb 9.1 g/dL (12.0-16.0) L 06/06/17 11:43 Hct 28.1 % (34.0-47.0) L 06/06/17 11:43 MCV 89.0 fl (81.0-99.0) 06/06/17 11:43 MCH 28.7 pg (27.0-31.0) 06/06/17 11:43 MCHC 32.3 g/dL (33.0-37.0) L 06/06/17 11:43 RDW 17.3 % (11.5-14.5) H 06/06/17 11:43 Plt Count 384 K/uL (130-400) 06/06/17 11:43 MPV 7.3 fl (7.2-11.7) 06/06/17 11:43 Neut % (Auto) 76.4 % (50.0-75.0) H 06/06/17 11:43 Lymph % (Auto) 14.3 % (20.0-40.0) L 06/06/17 11:43 [place] % (Auto) 7.7 % (0.0-10.0) 06/06/17 11:43 Eos % (Auto) 1.1 % (0.0-4.0) 06/06/17 11:43 Baso % (Auto) 0.5 % (0.0-2.0) 06/06/17 11:43 Neut # (Auto) 8.2 K/uL (1.8-7.0) H 06/06/17 11:43 Lymph # (Auto) 1.5 K/uL (1.0-4.3) 06/06/17 11:43 [place] # (Auto) 0.8 K/uL (0.0-0.8) 06/06/17 11:43 Eos # (Auto) 0.1 K/uL (0.0-0.7) 06/06/17 11:43 Baso # (Auto) 0.1 K/uL (0.0-0.2) 06/06/17 11:43 Sodium 143 mmol/l (132-148) 06/06/17 11:43 Potassium 3.8 MMOL/L (3.6-5.0) 06/06/17 11:43 Chloride 102 mmol/L (98-107) 06/06/17 11:43 Carbon Dioxide 31 mmol/L (22-30) H 06/06/17 11:43 Anion Gap 14 (10-20) 06/06/17 11:43 BUN 12 mg/dl (7-17) 06/06/17 11:43 Creatinine 0.5 mg/dl (0.7-1.2) L 06/06/17 11:43 Est GFR ( Amer) > 60 06/06/17 11:43 Est GFR (Non-Af Amer) > 60 06/06/17 11:43 Random Glucose 193 mg/dL (65-105) H 06/06/17 11:43 Calcium 9.2 mg/dL (8.4-10.2) 06/06/17 11:43 - Hospital Course Hospital Course: 76 yo female with history of Hypothyroidism and Asthma and recent right knee arthroscopy/meniscal repair came in because of abdominal pain radiating to the left flank. 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 Extensive DVT of the left leg was also noted when Venous Doppler was ordered for swelling of the left leg. Patient was started on therapeutic Lovenox and direct catheter thrombolysis was done at [facility] (Formerly [facility]). Course by problem: 1. Venous Thromboembolism had DVT thrombectomy of IVC, left iliac vein, SFV, Popliteal Vein and Left Common Ileac Vein. Intravascular stent was also placed on Left Common Iliac Vein. Had Heparin Drip for 24 hours post procedure as per recommendation from Dr North continue Eliquis 10mg PO BID 2. Abdominal pain most likely secondary to extensive VTE had thrombectomy/ thrombolysis with stent placement to left common iliac vein 3. Hypothyroidism uncontrolled TSH 4.98 (05/25/17) continue Levothyroxine 100 mcg daily 4.Asthma , mild intermittent Controlled Duonebs , O2 via NC 5. Leukocytosis Most likely reactive now back to normal 6. Poor appetite denies depression nutrition eval 7. DVT prophylaxis on Eliquis Patient is stable to be discharged home with follow up PMD in one week. Discharge Exam - Head Exam Additional comments: Vitals Reviewed GEN: WDWN, ALERT, COOPERATIVE HEENT: NCAT, PERRL, EOMI HEART: RRR, +S1S2, NO MRG LUNG: CTAB, NO WRR ABD: SOFT, NT, ND, NO HSM, NO MASSES EXT: NORMAL PEDAL PULSES, GOOD CAPILLARY REFILL NEURO: AAOX3, STRENGTH EQUAL BILATERAL UPPER AND LOWER EXTREMITIES SKIN: WARM, DRY PSYCH: NORMAL MOOD, NORMAL AFFECT Discharge Plan - Discharge Medications Prescriptions: Apixaban [Eliquis] 5 mg PO BID@0900,2100 #30 tab Atorvastatin [Lipitor] 20 mg PO HS #30 tab Levothyroxine [Synthroid] 100 mcg PO DAILY #30 tab - Follow Up Plan Condition: GOOD Disposition: HOME/ ROUTINE Instructions: Deep Venous Thrombosis (DC), Acute Abdominal Pain (DC), Fall Prevention (DC) Additional Instructions: Follow up with primary MD Bucio within a week
== END 2017-06-10 13:30 | disposition home or self-care (01) | DRG 301 ==
LOC: H.TCU 16:24
PROVIDERS: ADMIT Hospitalist; ATTEND Hospitalist
PROC: F07M6FZ Therapeutic Exercise Treatment of Musculoskeletal System - Whole Body using Assistive, Adaptive, Supportive or Protective Equipment (ICD-10-PCS; principal; 2017-06-02)
PROC: F07Z9FZ Gait Training/Functional Ambulation Treatment using Assistive, Adaptive, Supportive or Protective Equipment (ICD-10-PCS; 2017-06-02)
PROC: F08Z4FZ Home Management Treatment using Assistive, Adaptive, Supportive or Protective Equipment (ICD-10-PCS; 2017-06-02)
DX: I82.409 Acute embolism and thrombosis of unspecified deep veins of unspecified lower extremity (principal); J44.9 Chronic obstructive pulmonary disease, unspecified; D64.9 Anemia, unspecified; M06.9 Rheumatoid arthritis, unspecified; K57.30 Diverticulosis of large intestine without perforation or abscess without bleeding; Z79.01 Long term (current) use of anticoagulants; Z79.899 Other long term (current) drug therapy; Z90.49 Acquired absence of other specified parts of digestive tract; Z90.710 Acquired absence of both cervix and uterus; M79.89 Other specified soft tissue disorders; D72.829 Elevated white blood cell count, unspecified; E03.9 Hypothyroidism, unspecified

== ENCOUNTER 2017-08-08 19:55 | Emergency (ER) | payer MEDICARE ==
[2017-08-08 19:55] VITALS: BMI 26.0
[2017-08-08 21:24] VITALS: BP 130/77; PULSE 86; RESP 18; TEMP 98.4; O2SAT 100
[2017-08-08 22:40] LABS: BASO # 0.1 K/uL (0.0-0.2); EOS # 0.9 K/uL (0.0-0.7); EOS % 9.7 % (0.0-4.0); HEMOGLOBIN 12.8 g/dL (12.0-16.0); LYMPH # 2.5 K/uL (1.0-4.3); LYMPH % 25.7 % (20.0-40.0); MEAN CELL VOLUME 85.3 fl (81.0-99.0); MEAN CORPUSCULAR HEMOGLOBIN 27.3 pg (27.0-31.0); MEAN PLATELET VOLUME 7.8 fl (7.2-11.7); MONO # 0.7 K/uL (0.0-0.8); MONO % 7.7 % (0.0-10.0); NEUT # 5.4 K/uL (1.8-7.0); NEUT % 55.9 % (50.0-75.0); RBC 4.68 Mil/uL (3.80-5.20); RED CELL DISTRIBUTION WIDTH 16.1 % (11.5-14.5); WHITE BLOOD COUNT 9.6 K/uL (4.8-10.8)
[2017-08-08 22:49] LABS: ALBUMIN 3.9 g/dL (3.5-5.0); ALT/SGPT 83 U/L (9-52); AST/SGOT 43 U/L (14-36); BLOOD UREA NITROGEN 16 mg/dl (7-17); CALCIUM 10.1 mg/dL (8.4-10.2); GFR AFRICAN-AMERICAN > 60; GFR NON-AFRICAN AMERICAN > 60
--- NOTE | 2017-08-08 23:11 | US ---
EXAM: US Duplex Left Lower Extremity Veins CLINICAL HISTORY: 76 years old, female; Signs and symptoms; Swelling of limb; Lower extremity, left; Additional info: R/O dvt TECHNIQUE: Real-time duplex ultrasound scan of the left lower extremity veins integrating B-mode two-dimensional vascular structure, Doppler spectral analysis, color flow Doppler imaging and compression. COMPARISON: No relevant prior studies available. FINDINGS: Deep veins: Unremarkable. No DVT in the visualized common femoral, femoral, proximal deep femoral or popliteal veins. The veins demonstrate normal color flow, are normally compressible, with normal phasic flow and/or augmentation response. Soft tissues: No acute findings. No popliteal cyst. IMPRESSION: No evidence of left lower extremity deep venous thrombosis.
--- NOTE | 2017-08-08 23:42 | ED PDOC ---
Lower Extremity Pain/Injury Time Seen by Provider: 08/08/17 22:21 Chief Complaint (Nursing): Lower Extremity Problem/Injury Chief Complaint (Provider): R/o DVT History Per: Patient, Family History/Exam Limitations: no limitations Onset/Duration Of Symptoms: Days (3) Current Symptoms Are (Timing): Gone Now Severity: Mild - Risk Factors DVT Risk Factors: Pos: History Of DVT Past Medical History Vital Signs: Last Vital Signs Temp 98.4 F 08/08/17 21:21 Pulse 86 08/08/17 21:21 Resp 18 08/08/17 21:21 BP 130/77 08/08/17 21:21 Pulse Ox 100 08/08/17 21:21 - Medical History PMH: Anemia, Asthma, Diverticulitis, Deep Vein Thrombosis, Hypothyroidism, Rheumatoid Arthritis Comment Only: COPD (asthma) - Surgical History Surgical History: Cholecystectomy - Family History Family History: States: Unknown Family Hx - Home Medications Home Medications: Ambulatory Orders Medication Instructions Recorded Albuterol HFA [Ventolin HFA 90 2 puff IH Q4H PRN 05/25/17 mcg/actuation (8 g)] Fluticasone/Salmeterol 100/50 1 puff IH Q12H 05/25/17 [Advair Diskus 100/50] Montelukast [Singulair] 10 mg PO DAILY 05/25/17 Aspirin 81 mg PO DAILY #30 tab.chew 05/26/17 Atorvastatin [Lipitor] 20 mg PO DAILY #30 tab 05/26/17 Acetaminophen [Tylenol 325mg tab] 650 mg PO Q6 PRN tab 06/02/17 Acetaminophen [Tylenol 325mg tab] 650 mg PO Q6 PRN tab 06/02/17 Levothyroxine [Synthroid] 100 mcg PO DAILY@0630 tab 06/02/17 Pantoprazole [Protonix EC Tab] 40 mg PO DAILY ect 06/02/17 Apixaban [Eliquis] 5 mg PO BID@0900,2100 #30 tab 06/10/17 Atorvastatin [Lipitor] 20 mg PO HS #30 tab 06/10/17 Levothyroxine [Synthroid] 100 mcg PO DAILY #30 tab 06/10/17 - Allergies Allergies/Adverse Reactions: Allergies Allergy/AdvReac Type Severity Reaction Status Date / Time No Known Allergies Allergy Verified 02/02/18 16:16 Wells Criteria for PE - Wells Criteria for Pulmonary Embolism Clinical Signs and Symptoms of DVT: No P.E is #1 Diagnosis, or Equally Likely: No Heart Rate >100: No Immobilization at least 3 days;Surgery previous 4 weeks: No Previous, objectively diagnosed PE or DVT: Yes Hemoptysis: No Malignancy w/treatment within 6 months, or palliative: No Total Score: 1.5 Review of Systems Musculoskeletal: Positive for: Leg Pain - Laboratory Results Result Diagrams: 08/08/17 22:36 08/08/17 22:36 - ECG O2 Sat by Pulse Oximetry: 100 Medical Decision Making Medical Decision Making: R/o DVT objectively CBC CMP U/S U/S (-) for DVT Disposition - Clinical Impression Clinical Impression: Leg pain - Patient ED Disposition Is Patient to be Admitted: No Doctor Will See Patient In The: Office Counseled Patient/Family Regarding: Studies Performed, Diagnosis, Need For Followup - Disposition Disposition: Routine/Home Disposition Time: 23:43 Condition: GOOD Additional Instructions: follow up with PMD in 2-3 days Forms: [employer] (Greek)
== END 2017-08-08 23:55 | disposition home or self-care (01) ==
LOC: H.ER 19:55
DX: M79.606 Pain in leg, unspecified (principal); Z86.718 Personal history of other venous thrombosis and embolism; Z79.82 Long term (current) use of aspirin; Z79.01 Long term (current) use of anticoagulants; J44.9 Chronic obstructive pulmonary disease, unspecified; E03.9 Hypothyroidism, unspecified

== ENCOUNTER 2018-05-26 18:58 | Emergency (ER) | payer MEDICARE ==
[2018-05-26 18:58] VITALS: BMI 26.0
[2018-05-26 19:14] VITALS: TEMP 97.8
--- NOTE | 2018-05-26 20:31 | ED PDOC ---
Lower Extremity Pain/Injury Time Seen by Provider: 05/26/18 19:19 Chief Complaint (Nursing): Flu-like Symptoms Chief Complaint (Provider): Body Aches and Leg Swelling History Per: Patient History/Exam Limitations: no limitations Onset/Duration Of Symptoms: Days (x2) Current Symptoms Are (Timing): Still Present Additional Complaint(s): 77 y/o female with a PMHx of a DVT in the left leg presents to the ED for evaluation of body aches for the past two days and left sided leg swelling since yesterday. Patient reports of noticing left thumb swelling. However, patient de nies any trauma or injury that she is aware of. Patient reports of pain with movement of the left thumb. Patient additionally complaining of generalized weakness, facial swelling and a dry mouth. Otherwise, patient denies any numbness, weakness, fever, chills, chest pain and shortness of breath. PMD: Dr. Mckeon Past Medical History Reviewed: Historical Data, Nursing Documentation, Vital Signs Vital Signs: Last Vital Signs Temp 97.8 F 05/26/18 19:12 Pulse 64 05/26/18 19:12 Resp 16 05/26/18 19:12 BP 161/80 H 05/26/18 19:12 Pulse Ox 95 05/26/18 19:12 - Medical History PMH: Anemia, Asthma, Diverticulitis, Deep Vein Thrombosis, Hypothyroidism, Rheumatoid Arthritis Comment Only: COPD (asthma) - Surgical History Surgical History: Cholecystectomy - Family History Family History: States: Unknown Family Hx - Home Medications Home Medications: Ambulatory Orders Medication Instructions Recorded RX: Albuterol HFA [Ventolin HFA 90 2 puff IH Q4H PRN 05/25/17 mcg/actuation (8 g)] RX: Fluticasone/Salmeterol 100/50 1 puff IH Q12H 05/25/17 [Advair Diskus 100/50] RX: Montelukast [Singulair] 10 mg PO DAILY 05/25/17 RX: Aspirin 81 mg PO DAILY #30 tab.chew 05/26/17 RX: Atorvastatin [Lipitor] 20 mg PO DAILY #30 tab 05/26/17 RX: Acetaminophen [Tylenol 325mg 650 mg PO Q6 PRN tab 06/02/17 tab] RX: Acetaminophen [Tylenol 325mg 650 mg PO Q6 PRN tab 06/02/17 tab] RX: Levothyroxine [Synthroid] 100 mcg PO DAILY@0630 tab 06/02/17 RX: Pantoprazole [Protonix EC Tab] 40 mg PO DAILY ect 06/02/17 RX: Apixaban [Eliquis] 5 mg PO BID@0900,2100 #30 tab 06/10/17 RX: Atorvastatin [Lipitor] 20 mg PO HS #30 tab 06/10/17 RX: Levothyroxine [Synthroid] 100 mcg PO DAILY #30 tab 06/10/17 Naproxen [Naprosyn Tab] 250 mg PO BID PRN #30 tab 05/26/18 - Allergies Allergies/Adverse Reactions: Allergies Allergy/AdvReac Type Severity Reaction Status Date / Time No Known Allergies Allergy Verified 05/26/18 19:10 Review of Systems ROS Statement: Except As Marked, All Systems Reviewed And Found Negative (as per HPI) Constitutional: Positive for: Weakness, Other (myalgia). Negative for: Fever, Chills Cardiovascular: Negative for: Chest Pain Respiratory: Negative for: Shortness of Breath Musculoskeletal: Positive for: Hand Pain (left thumb pain ), Leg Pain (left leg swelling) Neurological: Negative for: Weakness, Numbness Physical Exam - Reviewed Nursing Documentation Reviewed: Yes Vital Signs Reviewed: Yes - Physical Exam Appears: Positive for: No Acute Distress (tired appearing) Head Exam: Negative for: NORMAL INSPECTION (Questionable swelling to the face) Skin: Positive for: Warm, Dry Eye Exam: Positive for: EOMI, PERRL ENT: Positive for: Other (dry mucous membranes) Neck: Positive for: Painless ROM, Supple Cardiovascular/Chest: Positive for: Regular Rate, Rhythm. Negative for: Murmur Respiratory: Positive for: Normal Breath Sounds. Negative for: Respiratory Distress Gastrointestinal/Abdominal: Positive for: Soft. Negative for: Tenderness Back: Positive for: Normal Inspection. Negative for: Decreased ROM Extremity: Positive for: Normal ROM (Full ROM of the left thumb. However, flexion illicits increased pain), Pedal Edema (1+ pitting edema in the left lower leg (does not include foot), all inferior to the knee. ), Calf Tenderness (of the left leg), Other (left thumb with mild edema and faint ecchymosis of the IP joint). Negative for: Tenderness (to palpation of the left thumb) Lymphatic: Negative for: Adenopathy Neurologic/Psych: Positive for: Alert. Negative for: Motor/Sensory Deficits - Laboratory Results Result Diagrams: 05/26/18 21:40 05/26/18 21:40 - ECG O2 Sat by Pulse Oximetry: 95 (RA) Pulse Ox Interpretation: Normal Medical Decision Making Medical Decision Making: Time: 1952 Impression: Swelling at multiple sites Differentials include but not limited to CHF, Viral Syndrome, DVT, fluid overload and renal failure Plan: -- EKG -- B-Type Natriuretic Peptide -- CMP -- Magnesium -- Phosphorus -- Troponin I -- CBC with Differentials -- Erythrocyte Sedimentation Rate -- PTT -- Prothrombin Time -- CXR Portable -- Tylenol 975 mg PO -- IV Insertion -- Left Thumb Hand XR -- Influenza A B -- Urinalysis -- US Duplex Lower Extremity Vein Left Labs with no emergently significant abnormalities. 2340 US FINDINGS: DEEP VEINS: The common femoral, superficial femoral, and popliteal veins are echolucent and compressible. There is normal color Doppler flow throughout. The visualized calf veins appear patent. SUPERFICIAL VEINS: The visualized greater saphenous vein is patent. SOFT TISSUES: No popliteal fossa cyst or other abnormalities. IMPRESSION: No deep venous thrombosis evident on left lower extremity examination. DW pt findings and plan of care. Stable for discharge with PMD followup. Scribe Attestation: Documented by Jak Hendrix, acting as a scribe for Florecita Brock MD. Provider Scribe Attestation: All medical record entries made by the Scribe were at my direction and personally dictated by me. I have reviewed the chart and agree that the record accurately reflects my personal performance of the history, physical exam, medical decision making, and the department course for this patient. I have also personally directed, reviewed, and agree with the discharge instructions and disposition. Disposition - Clinical Impression Clinical Impression: Arthralgia Counseled Patient/Family Regarding: Studies Performed, Diagnosis, Need For Followup, Rx Given - Disposition Referrals: Ross Bass MD [Medical Doctor] - 05/28/18 (VISIT DR BASS ON MONDAY FOR FURTHER EVALUATION) Disposition: Routine/Home Disposition Time: 23:40 Condition: STABLE Prescriptions: Naproxen [Naprosyn Tab] 250 mg PO BID PRN #30 tab PRN Reason: Arthritis Instructions: Joint Pain Print Language: MOZAMBICAN
[2018-05-26 21:48] LABS: BASO # 0.1 K/uL (0.0-0.2); EOS # 0.7 K/uL (0.0-0.7); EOS % 6.6 % (0.0-4.0); HEMOGLOBIN 11.1 g/dL (12.0-16.0); LYMPH # 2.3 K/uL (1.0-4.3); LYMPH % 23.5 % (20.0-40.0); MEAN CORPUSCULAR HEMOGLOBIN 24.7 pg (27.0-31.0); MEAN CORPUSCULAR HGB CONC 31.3 g/dL (33.0-37.0); MEAN PLATELET VOLUME 7.7 fl (7.2-11.7); MONO # 0.9 K/uL (0.0-0.8); MONO % 9.4 % (0.0-10.0); NEUT # 5.9 K/uL (1.8-7.0); NEUT % 59.5 % (50.0-75.0); NRBC % 0.1 % (0.0-0.0); RBC 4.5 Mil/uL (3.80-5.20); WHITE BLOOD COUNT 9.9 K/uL (4.8-10.8)
[2018-05-26 21:54] LABS: PROTHROMBIN TIME 11.9 Seconds (9.8-13.1)
[2018-05-26 21:55] LABS: MEAN CELL VOLUME 78.9 fl (81.0-99.0)
[2018-05-26 21:57] LABS: PARTIAL THROMBOPLASTIN TIME 32.3 Seconds (25.6-37.1)
[2018-05-26 22:09] LABS: ALB/GLOB RATIO 0.8 (1.0-2.1); ALBUMIN 3.6 g/dL (3.5-5.0); ALT/SGPT 15 U/L (9-52); AST/SGOT 23 U/L (14-36); B-TYPE NATRIURETIC PEPTIDE 576 pg/ml (0-900); BLOOD UREA NITROGEN 13 mg/dl (7-17); CALCIUM 9.6 mg/dL (8.4-10.2); GFR NON-AFRICAN AMERICAN > 60
[2018-05-27 07:01] VITALS: BP 139/64; PULSE 82; RESP 20
--- NOTE | 2018-05-27 12:32 | US ---
Date of service: 05/26/2018 HISTORY: LEFT leg swelling h/o DVT. PRIORS: Comparison made with prior left lower extremity Doppler exam dated 08/08/2017. FINDINGS: 2-D, color and duplex Doppler analysis of the lower extremity venous circulation using routine protocol from the femoral veins through the popliteal veins. Venous compressibility: Normal. Flow and augmentation patterns: Normal. Visualized veins upper third of calf: Normal. Thomas cyst: None. IMPRESSION: No sonographic or Doppler evidence for DVT in left lower extremity.
--- NOTE | 2018-05-27 17:02 | RAD ---
Date of service: 05/26/2018 HISTORY: Edema COMPARISON: Comparison chest dated 05/28/2017. FINDINGS: LUNGS: Minor bibasilar atelectasis and or scarring changes. Questionable chronic pleural thickening versus small effusions. PLEURA: As above. No pneumothorax apparent. CARDIOVASCULAR: [place] be present. Minor aortic atherosclerotic calcification present. Heart appears mildly enlarged. No pulmonary vascular congestion. OSSEOUS STRUCTURES: No significant abnormalities. VISUALIZED UPPER ABDOMEN: Normal. OTHER FINDINGS: None. IMPRESSION: Minor bibasilar atelectasis and or scarring changes. Questionable chronic pleural thickening versus small effusions.
--- NOTE | 2018-05-27 17:03 | RAD ---
Date of service: 05/26/2018 PROCEDURE: Left Thumb radiographs. HISTORY: swelling and pain COMPARISON: None. TECHNIQUE: AP radiograph of the left hand, as well as spot oblique and lateral images of thumb were obtained. FINDINGS: LEFT THUMB: No evidence of acute displaced fracture nor dislocation. Osseous structures appear intact. No obvious cortical destructive changes seen to suggest osteomyelitis. JOINTS: No significant osteoarthritis SOFT TISSUES: Soft tissues appear unremarkable without evidence of significant soft tissue swelling, subcutaneous emphysema or opaque foreign body OTHER FINDINGS: None. IMPRESSION: No evidence of acute displaced fracture nor dislocation
[2018-05-27 21:06] VITALS: O2SAT 95
== END 2018-05-27 00:25 | disposition home or self-care (01) ==
LOC: H.ER 18:58
DX: M79.662 Pain in left lower leg (principal); E03.9 Hypothyroidism, unspecified; M06.9 Rheumatoid arthritis, unspecified; Z79.01 Long term (current) use of anticoagulants; Z86.718 Personal history of other venous thrombosis and embolism; J44.9 Chronic obstructive pulmonary disease, unspecified; Z79.82 Long term (current) use of aspirin
CPT/HCPCS: 71045; 73140; 80053; 83735; 83880; 84100; 84484; 85025; 85610; 85730; 87804; 93971; 96374; 99282; J1885